=== PATIENT | female | born 1995 | race Caucasian/White ===

== ENCOUNTER 2016-08-28 21:27 | Emergency (ER) | payer OTHER ==
[2016-08-28 21:52] VITALS: O2SAT 100
[2016-08-28] MEDS ORDERED: Sodium Chloride 0.9% 1000 ML 1,000 ML IV STA (22:10)
--- NOTE | 2016-08-28 22:10 | ERPHSYRPT ---
- History of Present Illness Time Seen by Provider: 08/28/16 22:07 Historian: patient, family Exam Limitations: no limitations Patient Subjective Stated Complaint: PER PATIENT DIFUSE LOWER GENERALIZED ABD PAIN X2 WEEKS WITH ?? VAG DISCHARGE. P0-G0 Triage Nursing Assessment: PATIENT AOX3, VSS, NO FEVER, ABLE TO AMBULATE TO ROOM WITHOUT DIFF, FAMILY IN ROOM. Physician History: pt had pain with period and now again bilateral; no prior infections; states discharge has been present before and was treated for yeast and may not be related to pain above; wants to avoid pelvic if possible. no hx trauma; no n or v ; Timing/Duration: day(s) Activities at Onset: none Quality: pressure, sharpness, throbbing Abdominal Pain Onset Location: RLQ, LLQ Pain Radiation: RLQ, LLQ Severity of Pain-Max: moderate Severity of Pain-Current: moderate Modifying Factors: Improves With: movement, walking Previous symptoms: same symptoms as today Immunizations Up to Date: Yes - Review of Systems Constitutional: No Fever, No Chills Eyes: No Symptoms Ears, Nose, & Throat: No Symptoms Respiratory: No Cough, No Dyspnea Cardiac: No Chest Pain, No Edema, No Syncope Abdominal/Gastrointestinal: Abdominal Pain, No Nausea, No Vomiting, No Diarrhea Genitourinary Symptoms: Vaginal Discharge, No Dysuria Musculoskeletal: No Back Pain, No Neck Pain Skin: No Rash Neurological: No Dizziness, No Focal Weakness, No Sensory Changes Psychological: No Symptoms Endocrine: No Symptoms All Other Systems: Reviewed and Negative - Past Medical History Neurological History: No Pertinent History ENT History: No Pertinent History Cardiac History: No Pertinent History Respiratory History: No Pertinent History Endocrine Medical History: No Pertinent History Musculoskeletal History: Other GI Medical History: No Pertinent History History: No Pertinent History Psycho-Social History: No Pertinent History Female Reproductive Disorders: No Pertinent History Other Medical History: CHRONIC BACK PAIN - Past Surgical History Past Surgical History: No Neuro Surgical History: No Pertinent History Cardiac: No Pertinent History Respiratory: No Pertinent History Gastrointestinal: No Pertinent History Genitourinary: No Pertinent History Musculoskeletal: No Pertinent History Female Surgical History: No Pertinent History Other Surgical History: NONE - Social History Smoking Status: Never smoker Exposure to second hand smoke: No Drug Use: none Patient Lives Alone: No (FAMILY) - Female History Hx Last Menstrual Period: T-14 - Nursing Vital Signs Nursing Vital Signs: Initial Vital Signs Temperature 98.0 F Temperature Source Oral Pulse Rate 119 Respiratory Rate 16 Blood Pressure [Right Arm] 112/61 Pain Intensity 8 - Physical Exam General Appearance: no apparent distress, alert Eye Exam: PERRL/EOMI, eyes nml inspection Ears, Nose, Throat Exam: normal ENT inspection, pharynx normal, moist mucous membranes Neck Exam: normal inspection, non-tender, supple, full range of motion Respiratory Exam: normal breath sounds, lungs clear, No respiratory distress Cardiovascular Exam: regular rate/rhythm, normal heart sounds Gastrointestinal/Abdomen Exam: soft, tenderness (bilateral LQ), No mass Rectal Exam: deferred Back Exam: normal inspection, normal range of motion, No CVA tenderness, No vertebral tenderness Extremity Exam: normal inspection, normal range of motion, pelvis stable Neurologic Exam: alert, oriented x 3, cooperative, normal mood/affect, nml cerebellar function, sensation nml, No motor deficits Skin Exam: normal color, warm, dry SpO2: 100 Oxygen Delivery: Room Air - Course Nursing assessment & vital signs reviewed: Yes Ordered Tests: Active Orders 24 hr Category Date Time Status IV Insertion STAT Care 08/28/16 22:10 Active NPO (ED) STAT Care 08/28/16 22:10 Active PELVIS TRANS VAGINAL [US] Stat Exams 08/28/16 22:11 Taken AMYLASE Stat Lab 08/28/16 22:33 Completed CBC W DIFF Stat Lab 08/28/16 22:33 Completed CMP Stat Lab 08/28/16 22:33 Completed HCG QUALITATIVE,SERUM Stat Lab 08/28/16 22:33 Completed HCG, Quantitative (Inhouse) Stat Lab 08/28/16 22:33 Completed LIPASE Stat Lab 08/28/16 22:33 Completed Lactic Acid Stat Lab 08/28/16 22:30 Completed Lactic Acid Stat Lab 08/29/16 00:25 Completed UA W/ MICROSCOPIC Stat Lab 08/28/16 22:37 Completed Wet Prep Stat Lab 08/28/16 22:12 Ordered Medication Summary Generic Name Dose Route Start Last Admin Trade Name Freq PRN Reason Stop Dose Admin Sodium Chloride 1,000 mls @ 999 mls/hr 08/29/16 00:13 08/29/16 00:23 Sodium Chloride 0.9% 1000 Ml IV 08/29/16 01:13 999 mls/hr .Q1H1M STA Administration Discontinued Medications Generic Name Dose Route Start Last Admin Trade Name Freq PRN Reason Stop Dose Admin Sodium Chloride 1,000 mls @ 999 mls/hr 08/28/16 22:10 08/28/16 22:24 Sodium Chloride 0.9% 1000 Ml IV 08/28/16 23:10 999 mls/hr .Q1H1M STA Administration Sodium Chloride Confirm 08/28/16 22:18 Sodium Chloride 0.9% 1000 Ml Administered 08/28/16 22:19 Dose 1,000 mls @ ud .ROUTE .STK-MED ONE Sodium Chloride Confirm 08/29/16 00:10 Sodium Chloride 0.9% 1000 Ml Administered 08/29/16 00:11 Dose 1,000 mls @ ud .ROUTE .STK-MED ONE Potassium Chloride 20 meq 08/29/16 00:13 08/29/16 00:22 Klor Con 10 Meq PO 08/29/16 00:14 20 meq STAT ONE Administration Potassium Chloride Confirm 08/29/16 00:22 Klor Con 10 Meq Administered 08/29/16 00:23 Dose 20 meq PO .STK-MED ONE Lab/Rad Data: Laboratory Result Diagrams 08/28/16 22:33 08/28/16 22:33 Laboratory Results 08/29/16 08/28/16 08/28/16 Range/Units 00:25 22:37 22:33 WBC (4.0-10.5) K/mm3 RBC (4.1-5.4) M/mm3 Hgb (12.0-16.0) gm/dl Hct (35-47) % MCV (78-100) fl MCH (26-32) pg MCHC (32-36) g/dl RDW (11.5-14.0) % Plt Count (150-450) K/mm3 MPV (6-9.5) fl Gran % (36.0-66.0) % Lymphocytes % (24.0-44.0) % Monocytes % (0.0-12.0) % Eosinophils % (0.00-5.0) % Basophils % (0.0-0.4) % Basophils # (0-0.4) Sodium (136-145) mEq/L Potassium (3.5-5.1) mEq/L Chloride (98-107) mEq/L Carbon Dioxide (21-32) mEq/L Anion Gap (5-15) MEQ/L BUN (9-20) mg/dL Creatinine (0.55-1.30) mg/dl Estimated GFR ML/MIN Glucose (70-110) MG/DL Lactic Acid 0.9 (0.4-2.0) Calcium (8.5-10.1) mg/dL Total Bilirubin (0.2-1.0) mg/dL AST (15-37) U/L ALT (12-78) U/L Alkaline Phosphatase (46-116) U/L Serum Total Protein (6.4-8.2) gm/dL Albumin (3.4-5.0) g/dL Amylase (25-115) U/L Lipase (73-393) U/L Beta HCG, Quant < 1.0 (0-6) IU/L Serum , Qual (Negative) Ur Collection Type CLEAN CATCH Urine Color YELLOW (YELLOW) Urine Appearance SLIGHTLY CLOUDY (CLEAR) Urine pH 6.0 (5-6) Ur Specific [place] >=1.030 (1.005-1.025) Urine Protein TRACE (Negative) Urine Glucose (UA) NEGATIVE (NEGATIVE) mg/dL Urine Ketones MODERATE-40 (NEGATIVE) Urine Nitrite NEGATIVE (NEGATIVE) Urine Bilirubin NEGATIVE (NEGATIVE) Urine Urobilinogen 0.2 (0-1) mg/dL Urine WBC (Auto) NEGATIVE (NEGATIVE) Urine RBC (Auto) NEGATIVE (0-5) Trevor/ul Urine Microscopic RBC 0-2 (0-2) /HPF Urine Microscopic WBC 0-2 (0-5) /HPF Ur Epithelial Cells MODERATE (FEW) /HPF Urine Bacteria MODERATE (NEGATIVE) /HPF Urine Mucus MODERATE (NEGATIVE) /HPF Specimen Received 08/28/16222908/28/16 08/28/16 08/28/16 Range/Units 22:33 22:33 22:33 WBC 9.3 (4.0-10.5) K/mm3 RBC 4.60 (4.1-5.4) M/mm3 Hgb 14.2 (12.0-16.0) gm/dl Hct 41.9 (35-47) % MCV 91.1 (78-100) fl MCH 30.9 (26-32) pg MCHC 33.9 (32-36) g/dl RDW 12.4 (11.5-14.0) % Plt Count 347 (150-450) K/mm3 MPV 10.1 H (6-9.5) fl Gran % 64.8 (36.0-66.0) % Lymphocytes % 26.3 (24.0-44.0) % Monocytes % 8.3 (0.0-12.0) % Eosinophils % 0.4 (0.00-5.0) % Basophils % 0.2 (0.0-0.4) % Basophils # 0.02 (0-0.4) Sodium 140 (136-145) mEq/L Potassium 3.3 L (3.5-5.1) mEq/L Chloride 103 (98-107) mEq/L Carbon Dioxide 23.2 (21-32) mEq/L Anion Gap 16.7 H (5-15) MEQ/L BUN 15 (9-20) mg/dL Creatinine 0.66 (0.55-1.30) mg/dl Estimated GFR > 60 ML/MIN Glucose 99 (70-110) MG/DL Lactic Acid (0.4-2.0) Calcium 9.9 (8.5-10.1) mg/dL Total Bilirubin 0.4 (0.2-1.0) mg/dL AST 21 (15-37) U/L ALT 19 (12-78) U/L Alkaline Phosphatase 43 L (46-116) U/L Serum Total Protein 7.8 (6.4-8.2) gm/dL Albumin 4.7 (3.4-5.0) g/dL Amylase 36 (25-115) U/L Lipase 135 (73-393) U/L Beta HCG, Quant (0-6) IU/L Serum , Qual NEGATIVE (Negative) Ur Collection Type Urine Color (YELLOW) Urine Appearance (CLEAR) Urine pH (5-6) Ur Specific [place] (1.005-1.025) Urine Protein (Negative) Urine Glucose (UA) (NEGATIVE) mg/dL Urine Ketones (NEGATIVE) Urine Nitrite (NEGATIVE) Urine Bilirubin (NEGATIVE) Urine Urobilinogen (0-1) mg/dL Urine WBC (Auto) (NEGATIVE) Urine RBC (Auto) (0-5) Trevor/ul Urine Microscopic RBC (0-2) /HPF Urine Microscopic WBC (0-5) /HPF Ur Epithelial Cells (FEW) /HPF Urine Bacteria (NEGATIVE) /HPF Urine Mucus (NEGATIVE) /HPF Specimen Received 08/28/16 Range/Units 22:30 WBC (4.0-10.5) K/mm3 RBC (4.1-5.4) M/mm3 Hgb (12.0-16.0) gm/dl Hct (35-47) % MCV (78-100) fl MCH (26-32) pg MCHC (32-36) g/dl RDW (11.5-14.0) % Plt Count (150-450) K/mm3 MPV (6-9.5) fl Gran % (36.0-66.0) % Lymphocytes % (24.0-44.0) % Monocytes % (0.0-12.0) % Eosinophils % (0.00-5.0) % Basophils % (0.0-0.4) % Basophils # (0-0.4) Sodium (136-145) mEq/L Potassium (3.5-5.1) mEq/L Chloride (98-107) mEq/L Carbon Dioxide (21-32) mEq/L Anion Gap (5-15) MEQ/L BUN (9-20) mg/dL Creatinine (0.55-1.30) mg/dl Estimated GFR ML/MIN Glucose (70-110) MG/DL Lactic Acid 2.2 H (0.4-2.0) Calcium (8.5-10.1) mg/dL Total Bilirubin (0.2-1.0) mg/dL AST (15-37) U/L ALT (12-78) U/L Alkaline Phosphatase (46-116) U/L Serum Total Protein (6.4-8.2) gm/dL Albumin (3.4-5.0) g/dL Amylase (25-115) U/L Lipase (73-393) U/L Beta HCG, Quant (0-6) IU/L Serum , Qual (Negative) Ur Collection Type Urine Color (YELLOW) Urine Appearance (CLEAR) Urine pH (5-6) Ur Specific [place] (1.005-1.025) Urine Protein (Negative) Urine Glucose (UA) (NEGATIVE) mg/dL Urine Ketones (NEGATIVE) Urine Nitrite (NEGATIVE) Urine Bilirubin (NEGATIVE) Urine Urobilinogen (0-1) mg/dL Urine WBC (Auto) (NEGATIVE) Urine RBC (Auto) (0-5) Trevor/ul Urine Microscopic RBC (0-2) /HPF Urine Microscopic WBC (0-5) /HPF Ur Epithelial Cells (FEW) /HPF Urine Bacteria (NEGATIVE) /HPF Urine Mucus (NEGATIVE) /HPF Specimen Received - Progress Progress: improved, re-examined Progress Note: 08/29/16 00:42 pt lactate has returned to normal after IVF , she feels OK now and wishes DC; she declines pelvic and wet prep/ at this time , but wishes treatmetn of /for yeast as before; she aggrees to f/u [employer] and will be tested if symptoms not resolving; 08/29/16 00:44 HR improved to 80-s now; 08/29/16 00:45 discussed also diagnosis of cyst and that undetected pathology could be evolving and pt prefers DC and F/U to further testing/admission at this time; Counseled pt/family regarding: lab results, diagnosis, need for follow-up, rad results - Departure Time of Disposition: 00:44 Departure Disposition: Home Clinical Impression: Ruptured ovarian cyst Condition: Good Critical Care Time: No Instructions: Abdominal Pain-Adult, Ovarian Cyst, Yeast Infection Additional Instructions: followup with your Dr for your Ovarian cyst , and yeast , and have further cultures if the discharge continues as we have not tested for other things; return meantime if dizzy, vomiting, increased pain , fever , discharge or other concerns; Prescriptions: Miconazole Nitrate [Monistat 1] 1 each VG UD #1 kit
[2016-08-28] MEDS ORDERED: Sodium Chloride 0.9% 1000 ML 1,000 ML ONE (22:18)
[2016-08-28 22:38] LABS: BASOPHIL % 0.2 % (0.0-0.4); Eosinophil % 0.4 % (0.00-5.0); Granulocytes % 64.8 % (36.0-66.0); Lymphocytes % 26.3 % (24.0-44.0); Mean Cell Volume 91.1 fl (78-100); Mean Corpuscular Hemoglobin 30.9 pg (26-32); Mean Platelet Volume 10.1 fl (6-9.5); Monocytes % 8.3 % (0.0-12.0); Platelet Count 347 K/mm3 (150-450); Red Cell Distribution Width 12.4 % (11.5-14.0); White Blood Count 9.3 K/mm3 (4.0-10.5)
[2016-08-28 22:40] LABS: Lactic Acid 2.2 (0.4-2.0)
[2016-08-28 22:57] LABS: ALBUMIN 4.7 g/dL (3.4-5.0); ALKALINE PHOSPHATASE 43 U/L (46-116); ANION GAP 16.7 MEQ/L (5-15); BILIRUBIN,TOTAL 0.4 mg/dL (0.2-1.0); BLOOD UREA NITROGEN 15 mg/dL (9-20); CHLORIDE 103 mEq/L (98-107); Carbon Dioxide 23.2 mEq/L (21-32); Glucose 99 MG/DL (70-110); LIPASE 135 U/L (73-393); Potassium 3.3 mEq/L (3.5-5.1); SGOT/AST 21 U/L (15-37); SGPT/ALT 19 U/L (12-78); SODIUM 140 mEq/L (136-145); Total Protein 7.8 gm/dL (6.4-8.2)
[2016-08-28 23:03] VITALS: BP 112/61; PULSE 119
[2016-08-28 23:05] LABS: Bacteria MODERATE /HPF (NEGATIVE); COMPLETE URINE MICROSCOPIC? YES; Collection Type CLEAN CATCH; Epithelial Cells MODERATE /HPF (FEW); Mucus MODERATE /HPF (NEGATIVE); WBC 0-2 /HPF (0-5)
[2016-08-29] MEDS ORDERED: Sodium Chloride 0.9% 1000 ML 1,000 ML ONE (00:10)
[2016-08-29] MEDS ORDERED: Klor Con 10 MEQ PO ONE ×2 (00:13→00:22)
[2016-08-29] MEDS ORDERED: Sodium Chloride 0.9% 1000 ML 1,000 ML IV STA (00:13)
--- NOTE | 2016-08-29 09:41 | XRAY ---
Indication: Pelvic pain. Two-dimensional transvaginal pelvic sonogram was performed. Comparison: None Uterus is anteverted measuring 7.3 x 3.1 x 3.9 cm. No uterine mass. Endometrial stripe measures 7.4 mm in thickness. No endometrial cavity mass or fluid collection. Right ovary measures 2.7 x 3.0 x 2.2 cm and the left measures 2.9 x 2.1 x 2.5 cm. Normal perfusion bilaterally. Partially collapsed 1.5 cm right ovary cyst with tiny cul-de-sac fluid. Impression: Collapsing right ovary cyst with tiny cul-de-sac fluid. Remaining pelvic sonogram is negative. Comment: Preliminary report was given.
== END 2016-08-29 01:06 | disposition home or self-care (01) ==
LOC: ED 21:27
DX: N83.209 Unspecified ovarian cyst, unspecified side (principal)
CPT/HCPCS: 36000; 36415; 76830; 80053; 81000; 82150; 83605; 83690; 84702; 84703; 85025; 96360; 96361; 99284; A9270-GY

== ENCOUNTER 2017-10-11 03:17 | Emergency (ER) | payer OTHER ==
--- NOTE | 2017-10-11 03:57 | ERPHSYRPT ---
- History of Present Illness Time Seen by Provider: 10/11/17 03:47 Historian: patient, family, EMS Exam Limitations: no limitations Patient Subjective Stated Complaint: Pt arrives to ER with c/o mid-epigastric abdominal pain for past 2 days and radiates into left flank/LUQ/left ribs. States had a panic attack when getting home from [facility] ER after taking Trimont and Keflex for sore throat. States had abdominal pain there but denies being treated for abdominal pain. Pt was hypotensive for EMS with BP 80's and 90 's systolic and tachycardic rate 105bpm. Pt now normotensive 117/73 and NSR 86bpm. Pt does not appear to be in any distress at this time. pt is dizzy while walking to restroom stating believes is d/t norco. Triage Nursing Assessment: see above Physician History: The patient is a 22-year-old female arrives by ambulance with her family complaining of epigastric pain for 2 days, some mild diarrhea, nausea, and a sore throat. Decrease appetite. One hour ago she was seen at [facility] ER and was diagnosed with strep throat, given Trimont and Keflex and discharged per patient report. When she got home her abdominal pain increased and she was not feeling well. Her past medical history significant for cholecystectomy. Timing/Duration: day(s) (2), constant, gradual onset Activities at Onset: none Quality: aching Abdominal Pain Onset Location: epigastric Pain Radiation: no radiation Severity of Pain-Max: moderate Severity of Pain-Current: moderate Modifying Factors: Improves With: nothing Associated Symptoms: diarrhea, nausea Previous symptoms: no prior history Allergies/Adverse Reactions: coconut Adverse Reaction (Verified 10/11/17 03:34) Rash hydrogen peroxide Adverse Reaction (Verified 10/11/17 03:34) Rash Home Medications: Cephalexin Mh 250 mg [Keflex 250 mg] 250 mg PO DAILY 10/11/17 [History] Hydrocodone Bit/Acetaminophen [Trimont 5-325 Tablet] 1 tab PO Q4-6HPRN PRN [History] - Review of Systems Constitutional: Fever Eyes: No Symptoms Ears, Nose, & Throat: Throat Pain Respiratory: No Cough, No Dyspnea Cardiac: No Chest Pain, No Edema, No Syncope Abdominal/Gastrointestinal: Nausea, Diarrhea Genitourinary Symptoms: No Dysuria Musculoskeletal: No Back Pain, No Neck Pain Skin: No Rash Neurological: No Dizziness, No Focal Weakness, No Sensory Changes Psychological: No Symptoms Endocrine: No Symptoms Hematologic/Lymphatic: No Symptoms Immunological/Allergic: No Symptoms All Other Systems: Reviewed and Negative - Past Medical History Pertinent Past Medical History: Yes Neurological History: No Pertinent History ENT History: No Pertinent History Cardiac History: No Pertinent History Respiratory History: No Pertinent History Endocrine Medical History: No Pertinent History Musculoskeletal History: Other GI Medical History: No Pertinent History History: No Pertinent History Psycho-Social History: No Pertinent History Female Reproductive Disorders: No Pertinent History Other Medical History: CHRONIC BACK PAIN - Past Surgical History Past Surgical History: Yes Neuro Surgical History: No Pertinent History Cardiac: No Pertinent History Respiratory: No Pertinent History Gastrointestinal: Cholecystectomy Genitourinary: No Pertinent History Musculoskeletal: No Pertinent History Female Surgical History: No Pertinent History Other Surgical History: Finger surgery, wart laser removal from hand - Social History Smoking Status: Never smoker Exposure to second hand smoke: Yes Drug Use: none Patient Lives Alone: No - Female History Hx Now: No - Nursing Vital Signs Nursing Vital Signs: Initial Vital Signs Temperature 98.7 F 10/11/17 03:20 Pulse Rate 88 10/11/17 03:20 Respiratory Rate 18 10/11/17 03:20 Blood Pressure 117/73 10/11/17 03:20 O2 Sat by Pulse Oximetry 99 10/11/17 03:20 Pain Scale Pain Intensity 5 - Physical Exam General Appearance: no apparent distress, alert Eye Exam: PERRL/EOMI, eyes nml inspection Ears, Nose, Throat Exam: normal ENT inspection, pharynx normal, moist mucous membranes Neck Exam: normal inspection, non-tender, supple, full range of motion Respiratory Exam: normal breath sounds, lungs clear, No respiratory distress Cardiovascular Exam: normal heart sounds, tachycardia Gastrointestinal/Abdomen Exam: soft, tenderness (epigastric), No mass Pelvic Exam: not done Rectal Exam: not done Back Exam: normal inspection, normal range of motion, No CVA tenderness, No vertebral tenderness Extremity Exam: normal inspection, normal range of motion, pelvis stable Neurologic Exam: alert, oriented x 3, cooperative, normal mood/affect, nml cerebellar function, sensation nml, No motor deficits Skin Exam: normal color, warm, dry SpO2 Interpretation: normal SpO2: 99 Oxygen Delivery: Room Air - Radiology Exams Abdomen X-ray Interpretation: Interpreted by me, Other (mildly dilated colon.) Chest X-ray Interpretation: Interpreted by me, Negative - CT Exams Abdomen/Pelvis CT Interpretation: Tele-radiologist Report (per Dr Urias.), Other (mildly distended small bowel; enteritis; perocolonic stranding; colitis) Ordered Tests: Active Orders 24 hr Category Date Time Status Clean Catch Urine Specimen STAT Care 10/11/17 03:57 Active IV Insertion STAT Care 10/11/17 03:57 Active ABDOMEN AND PELVIS W/0 CONTRAS [CT] Stat Exams 10/11/17 05:29 Taken OBSTR/ACUTE ABDOMEN SERIES Stat Exams 10/11/17 03:58 Taken CBC W DIFF Stat Lab 10/11/17 04:23 Completed CMP Stat Lab 10/11/17 04:23 Completed HCG QUALITATIVE,SERUM Stat Lab 10/11/17 04:23 Completed LIPASE Stat Lab 10/11/17 04:23 Completed UA W/RFX UR CULTURE Stat Lab 10/11/17 04:23 Completed Urine Triage Profile Stat Lab 10/11/17 04:23 Completed Medication Summary Discontinued Medications Generic Name Dose Route Start Last Admin Trade Name Freq PRN Reason Stop Dose Admin Al Hydrox/Mg Hydrox/Simethicone Confirm 10/11/17 04:07 Maalox Es 30 Ml Unit Dose Administered 10/11/17 04:08 Dose 30 ml .ROUTE .STK-MED ONE Famotidine 20 mg 10/11/17 03:57 10/11/17 04:26 Pepcid 20 Mg Vial IV 10/11/17 03:58 20 mg STAT ONE Administration Famotidine Confirm 10/11/17 04:03 Pepcid 20 Mg Vial Administered 10/11/17 04:04 Dose 20 mg IV .STK-MED ONE Sodium Chloride 1,000 mls @ 999 mls/hr 10/11/17 03:57 10/11/17 05:32 Sodium Chloride 0.9% 1000 Ml IV 10/11/17 04:57 999 mls/hr .Q1H1M STA Infusion Sodium Chloride Confirm 10/11/17 04:07 Sodium Chloride 0.9% 1000 Ml Administered 10/11/17 04:08 Dose 1,000 mls @ ud .ROUTE .STK-MED ONE Ketorolac Tromethamine 30 mg 10/11/17 03:57 10/11/17 04:27 Toradol 30 Mg Injection IV 10/11/17 03:58 30 mg STAT ONE Administration Ketorolac Tromethamine Confirm 10/11/17 04:03 Toradol 30 Mg Injection Administered 10/11/17 04:04 Dose 30 mg .ROUTE .STK-MED ONE Lidocaine HCl Confirm 10/11/17 04:07 Xylocaine Hcl Viscous * Administered 10/11/17 04:08 Dose 15 ml .ROUTE .STK-MED ONE Magnesium Hydroxide 45 ml 10/11/17 03:57 10/11/17 04:26 Gi Cocktail 45 Ml (Maalox/Lidocaine) PO 10/11/17 03:58 45 ml STAT ONE Administration Ondansetron HCl 4 mg 10/11/17 03:57 10/11/17 04:27 Zofran 4 Mg/2 Ml Vial IV 10/11/17 03:58 4 mg STAT ONE Administration Ondansetron HCl Confirm 10/11/17 04:03 Zofran 4 Mg/2 Ml Vial Administered 10/11/17 04:04 Dose 4 mg .ROUTE .STK-MED ONE Potassium Chloride 10 meq 10/11/17 05:32 10/11/17 05:37 Klor Con 10 Meq PO 10/11/17 05:33 10 meq STAT ONE Administration Potassium Chloride Confirm 10/11/17 05:35 Klor Con 10 Meq Administered 10/11/17 05:36 Dose 10 meq PO .STK-MED ONE Lab/Rad Data: Laboratory Result Diagrams 10/11/17 04:23 10/11/17 04:23 Laboratory Results 10/11/17 10/11/17 10/11/17 Range/Units 04:23 04:23 04:23 WBC (4.0-10.5) K/mm3 RBC (4.1-5.4) M/mm3 Hgb (12.0-16.0) gm/dl Hct (35-47) % MCV (78-100) fl MCH (26-32) pg MCHC (32-36) g/dl RDW (11.5-14.0) % Plt Count (150-450) K/mm3 MPV (6-9.5) fl Gran % (36.0-66.0) % Eos # (Auto) (0-0.5) Absolute Lymphs (auto) (1.0-4.6) Absolute Monos (auto) (0.0-1.3) Lymphocytes % (24.0-44.0) % Monocytes % (0.0-12.0) % Eosinophils % (0.00-5.0) % Basophils % (0.0-0.4) % Absolute Granulocytes (1.4-6.9) Basophils # (0-0.4) Sodium (137-145) mmol/L Potassium (3.5-5.1) mmol/L Chloride (98-107) mmol/L Carbon Dioxide (22-30) mmol/L Anion Gap (5-15) MEQ/L BUN (7-17) mg/dL Creatinine (0.52-1.04) mg/dL Estimated GFR ML/MIN Glucose (74-106) mg/dL Calcium (8.4-10.2) mg/dL Total Bilirubin (0.2-1.3) mg/dL AST (14-36) U/L ALT (0-35) U/L Alkaline Phosphatase (38-126) U/L Serum Total Protein (6.3-8.2) g/dL Albumin (3.5-5.0) g/dL Lipase (23-300) U/L Serum , Qual (Negative) Ur Collection Type CCMS Urine Color YELLOW (YELLOW) Urine Appearance CLEAR (CLEAR) Urine pH 6.0 (5-6) Ur Specific [place] 1.015 (1.005-1.025) Urine Protein NEGATIVE (Negative) Urine Ketones MODERATE (NEGATIVE) Urine Blood NEGATIVE (0-5) Trevor/ul Urine Nitrite NEGATIVE (NEGATIVE) Urine Bilirubin NEGATIVE (NEGATIVE) Urine Urobilinogen NORMAL (0-1) mg/dL Ur Leukocyte Esterase NEGATIVE (NEGATIVE) Urine Culture Reflexed NO (NO) Urine Glucose NEGATIVE (NEGATIVE) mg/dL Urine Opiates Level POSITIVE (NEGATIVE) Ur Methadone NEGATIVE (NEGATIVE) Urine Barbiturates NEGATIVE (NEGATIVE) Ur Phencyclidine (PCP) NEGATIVE (NEGATIVE) Urine Amphetamine NEGATIVE (NEGATIVE) U Benzodiazepine Level NEGATIVE (NEGATIVE) Urine Cocaine NEGATIVE (NEGATIVE) Urine Marijuana (THC) NEGATIVE (NEGATIVE) Group A Strep Antibody NEGATIVE (NEGATIVE) Specimen Received 10-11-17 0430 10/11/17 10/11/17 10/11/17 Range/Units 04:23 04:23 04:23 WBC 16.1 H (4.0-10.5) K/mm3 RBC 4.44 (4.1-5.4) M/mm3 Hgb 14.1 (12.0-16.0) gm/dl Hct 40.5 (35-47) % MCV 91.2 (78-100) fl MCH 31.8 (26-32) pg MCHC 34.8 (32-36) g/dl RDW 12.2 (11.5-14.0) % Plt Count 309 (150-450) K/mm3 MPV 9.7 H (6-9.5) fl Gran % 86.1 H (36.0-66.0) % Eos # (Auto) 0.01 (0-0.5) Absolute Lymphs (auto) 1.20 (1.0-4.6) Absolute Monos (auto) 0.99 (0.0-1.3) Lymphocytes % 7.5 L (24.0-44.0) % Monocytes % 6.2 (0.0-12.0) % Eosinophils % 0.1 (0.00-5.0) % Basophils % 0.1 (0.0-0.4) % Absolute Granulocytes 13.83 H (1.4-6.9) Basophils # 0.02 (0-0.4) Sodium 141 (137-145) mmol/L Potassium 3.4 L (3.5-5.1) mmol/L Chloride 106 (98-107) mmol/L Carbon Dioxide 24 (22-30) mmol/L Anion Gap 14.1 (5-15) MEQ/L BUN 12 (7-17) mg/dL Creatinine 0.56 (0.52-1.04) mg/dL Estimated GFR > 60.0 ML/MIN Glucose 126 H (74-106) mg/dL Calcium 9.2 (8.4-10.2) mg/dL Total Bilirubin 0.60 (0.2-1.3) mg/dL AST 17 (14-36) U/L ALT 11 (0-35) U/L Alkaline Phosphatase 45 (38-126) U/L Serum Total Protein 7.2 (6.3-8.2) g/dL Albumin 4.6 (3.5-5.0) g/dL Lipase 67 (23-300) U/L Serum , Qual NEGATIVE (Negative) Ur Collection Type Urine Color (YELLOW) Urine Appearance (CLEAR) Urine pH (5-6) Ur Specific [place] (1.005-1.025) Urine Protein (Negative) Urine Ketones (NEGATIVE) Urine Blood (0-5) Trevor/ul Urine Nitrite (NEGATIVE) Urine Bilirubin (NEGATIVE) Urine Urobilinogen (0-1) mg/dL Ur Leukocyte Esterase (NEGATIVE) Urine Culture Reflexed (NO) Urine Glucose (NEGATIVE) mg/dL Urine Opiates Level (NEGATIVE) Ur Methadone (NEGATIVE) Urine Barbiturates (NEGATIVE) Ur Phencyclidine (PCP) (NEGATIVE) Urine Amphetamine (NEGATIVE) U Benzodiazepine Level (NEGATIVE) Urine Cocaine (NEGATIVE) Urine Marijuana (THC) (NEGATIVE) Group A Strep Antibody (NEGATIVE) Specimen Received - Progress Progress: improved Counseled pt/family regarding: lab results, diagnosis, need for follow-up, rad results - Departure Time of Disposition: 06:46 Departure Disposition: Home Clinical Impression: Enteritis, Hypokalemia Condition: Stable Critical Care Time: No Referrals: HÉCTOR MIRELES, ZARA [Primary Care Provider] - Additional Instructions: The CT scan of your abdomen and pelvis showed enteritis which is a infection of your small intestine. Take ciprofloxacin 500 mg 2 times a day for 10 days. You also had mildly low serum potassium. You were given potassium 10 mEq in the ER. You were also given a GI cocktail in the ER. You were given Toradol 30 mg and Pepcid 20 mg by IV. Begin with a bland diet and advance as tolerated. Take Tylenol as needed. Follow-up with your primary medical doctor in 2-3 days. Discontinue taking the Keflex. Prescriptions: Ciprofloxacin [Cipro 500 MG] 1 tab PO BID #20 tablet
[2017-10-11] MEDS ORDERED: Pepcid 20 MG VIAL IV ONE (04:03)
[2017-10-11] MEDS ORDERED: Zofran 4 MG/2 ML VIAL ONE (04:03)
[2017-10-11] MEDS ORDERED: TORAdol 30 mg Injection ONE (04:03)
[2017-10-11] MEDS ORDERED: MAALOX ES 30 ML UNIT DOSE ONE (04:07)
[2017-10-11] MEDS ORDERED: Sodium Chloride 0.9% 1000 ML 1,000 ML ONE (04:07)
[2017-10-11] MEDS ORDERED: XYLOCAINE HCl Viscous ONE (04:07)
[2017-10-11 04:26] LABS: BASOPHIL % 0.1 % (0.0-0.4); Basophil (Absolute #) 0.02 (0-0.4); Eosinophil % 0.1 % (0.00-5.0); Eosinophil (Absolute #) 0.01 (0-0.5); Granulocyte Absolute (ANC) 13.83 (1.4-6.9); Granulocytes % 86.1 % (36.0-66.0); Hematocrit 40.5 % (35-47); Hemoglobin 14.1 gm/dl (12.0-16.0); Lymphocytes % 7.5 % (24.0-44.0); Mean Cell Volume 91.2 fl (78-100); Mean Corpuscular Hemoglobin 31.8 pg (26-32); Mean Corpuscular Hgb Concent. 34.8 g/dl (32-36); Mean Platelet Volume 9.7 fl (6-9.5); Monocyte (Absolute #) 0.99 (0.0-1.3); Monocytes % 6.2 % (0.0-12.0); Platelet Count 309 K/mm3 (150-450); Red Blood Count 4.44 M/mm3 (4.1-5.4); Red Cell Distribution Width 12.2 % (11.5-14.0); White Blood Count 16.1 K/mm3 (4.0-10.5)
[2017-10-11] MEDS: Pepcid 20 MG VIAL IV ONE (04:26)
[2017-10-11] MEDS: GI COCKTAIL 45 ML (Maalox/Lidocaine) PO ONE (04:26)
[2017-10-11] MEDS: TORAdol 30 mg Injection IV ONE (04:27)
[2017-10-11] MEDS: Sodium Chloride 0.9% 1000 ML 1,000 ML IV STA (04:27)
[2017-10-11] MEDS: Zofran 4 MG/2 ML VIAL IV ONE (04:27)
[2017-10-11 04:31] LABS: Appearance CLEAR (CLEAR); Bilirubin NEGATIVE (NEGATIVE); Blood NEGATIVE Ery/ul (0-5); Glucose NEGATIVE (NEGATIVE); Ketones MODERATE (NEGATIVE); Leukocyte Esterase NEGATIVE (NEGATIVE); Nitrite NEGATIVE (NEGATIVE); Protein,Urine Dip NEGATIVE (Negative); Specific Gravity 1.015 (1.005-1.025); Urobilinogen NORMAL mg/dL (0-1)
[2017-10-11 04:46] LABS: Amphetamine,Urine NEGATIVE (NEGATIVE); Barbiturate,Urine NEGATIVE (NEGATIVE); Benzodiazepine,Urine NEGATIVE (NEGATIVE); Cocaine,Urine NEGATIVE (NEGATIVE); Methadone,Urine NEGATIVE (NEGATIVE); Opiate,Urine POSITIVE (NEGATIVE); PCP,Urine NEGATIVE (NEGATIVE); THC,Urine NEGATIVE (NEGATIVE)
[2017-10-11 04:55] LABS: ALBUMIN 4.6 g/dL (3.5-5.0); ALKALINE PHOSPHATASE 45 U/L (38-126); ANION GAP 14.1 MEQ/L (5-15); BLOOD UREA NITROGEN 12 mg/dL (7-17); CHLORIDE 106 mmol/L (98-107); Calcium 9.2 mg/dL (8.4-10.2); Carbon Dioxide 24 mmol/L (22-30); Creatinine 1 0.56 mg/dL (0.52-1.04); Glucose 126 mg/dL (74-106); LIPASE 67 U/L (23-300); Potassium 3.4 mmol/L (3.5-5.1); SGOT/AST 17 U/L (14-36); SGPT/ALT 11 U/L (0-35); SODIUM 141 mmol/L (137-145); Total Protein 7.2 g/dL (6.3-8.2)
[2017-10-11 05:32] VITALS: O2SAT 99
[2017-10-11] MEDS ORDERED: Klor Con 10 MEQ PO ONE (05:35)
[2017-10-11] MEDS: Klor Con 10 MEQ PO ONE (05:37)
[2017-10-11 06:37] VITALS: BP 104/68; PULSE 103
--- NOTE | 2017-10-11 08:40 | XRAY ---
Indication: Upper abdominal pain, fever, nausea, vomiting, and diarrhea. Multiple contiguous axial images obtained through the abdomen and pelvis without contrast as ordered. Comparison: None Lung bases are clear. Heart is not enlarged. Noncontrasted stomach and bowel loops appear nonobstructed. Normal air-filled appendix. 2.5 cm right ovary cyst. Tiny cul-de-sac fluid presumed physiologic from rupture/leaking cyst. Nonobstructing faint punctate right renal nephrocalcinosis. Previous cholecystectomy. Remaining liver, pancreas, spleen, adrenal glands, kidneys, ureters, bladder, uterus, and aorta appear unremarkable for noncontrast exam. Osseous structures intact with tiny multilevel lumbar Schmorl nodes and mild levoscoliosis centered at L3. No ventral or inguinal hernias. Impression: 1. 2.5 cm right ovary cyst with tiny cul-de-sac fluid presumed physiologic. 2. Nonobstructing punctate right renal nephrocalcinosis. 3. No acute intra-abdominal/pelvic abnormalities on this noncontrast exam. Comment: Preliminary interpretation was made by [facility]. No discrepancy. CT DI 8.11
--- NOTE | 2017-10-11 08:41 | XRAY ---
Indication: Abdominal pain, nausea, vomiting, diarrhea, fever, and sore throat. Comparison: Chest exam February 25, 2009. 2 views of the abdomen demonstrates nonspecific nonobstructed bowel gas pattern with cholecystectomy clips. Solid organs unremarkable. No free air. Osseous structures intact with double curvature thoracolumbar scoliosis. Single PA chest again demonstrates normal heart and lungs. Impression: Nonacute nonobstructed abdomen. Stable nonacute 1 view chest. Incidental double curvature scoliosis.
== END 2017-10-11 07:09 | disposition home or self-care (01) ==
LOC: ED 03:17
DX: K52.9 Noninfective gastroenteritis and colitis, unspecified (principal); E87.6 Hypokalemia
CPT/HCPCS: 36000; 36415; 74022; 74176; 80053; 80307; 81002; 83690; 84703; 85025; 87651; 96360; 96372; 96374; 96375; 99284; J1885; J2405; A9270-GY

== ENCOUNTER 2017-12-24 10:49 | Emergency (ER) | payer OTHER ==
--- NOTE | 2017-12-24 11:18 | ERPHSYRPT ---
- History of Present Illness Time Seen by Provider: 12/24/17 11:06 Source: patient Exam Limitations: no limitations Patient Subjective Stated Complaint: , pt here for right lower abd and groin pain. pain for for a week has now. has seen by family doc this week and given naproxen with no refief . no vomiting or fever Triage Nursing Assessment: pt alert, resp easy, skin w/d/p, abd soft Physician History: 22-year-old white female arrives with complaint of a painful area in the right inguinal region symptoms for one half weeks. Patient has seen her family . secondary to this she states she is taking Naprosyn but is not getting any relief. Patient really is not having any abdominal pain no nausea no vomiting. Past medical history includes chronic back pain. Past surgical history includes cholecystectomy. Timing/Duration: week(s) (1-1/2 weeks) Severity: moderate Modifying Factors: Improves With: nothing Associated Symptoms: other (pain overlying right inguinal regionfor one and a half weeks), No nausea, No vomiting, No abdominal pain, No shortness of breath, No heartburn, No diaphoresis, No cough, No chills, No chest pain, No fever, No headaches, No loss of appetite, No malaise, No rash, No syncope, No seizure, No weakness Allergies/Adverse Reactions: acetaminophen [From [facility]] Allergy (Verified 12/24/17 11:02) hydrocodone [From [facility]] Allergy (Verified 12/24/17 11:02) coconut Adverse Reaction (Verified 10/11/17 03:34) Rash hydrogen peroxide Adverse Reaction (Verified 10/11/17 03:34) Rash Home Medications: Naproxen 250 mg BID 12/24/17 [History] Hx Tetanus, Diphtheria Vaccination/Date Given: Yes Hx Influenza Vaccination/Date Given: No Hx Pneumococcal Vaccination/Date Given: No Immunizations Up to Date: Yes - Review of Systems Constitutional: No Fever, No Chills Eyes: No Symptoms Ears, Nose, & Throat: No Symptoms Respiratory: No Cough, No Dyspnea Cardiac: No Chest Pain, No Edema, No Syncope Abdominal/Gastrointestinal: No Abdominal Pain, No Nausea, No Vomiting, No Diarrhea, No Constipation, No Hematemesis, No Hematochezia, No Melena, No Dysphagia, No Appetite Changes Genitourinary Symptoms: No Dysuria Musculoskeletal: Other (pain in the right inguinal region for 1 1/2 weeks) Skin: No Rash Neurological: No Dizziness, No Focal Weakness, No Sensory Changes Psychological: No Symptoms Endocrine: No Symptoms All Other Systems: Reviewed and Negative - Past Medical History Pertinent Past Medical History: Yes Neurological History: No Pertinent History ENT History: No Pertinent History Cardiac History: No Pertinent History Respiratory History: No Pertinent History Endocrine Medical History: No Pertinent History Musculoskeletal History: Other GI Medical History: No Pertinent History History: No Pertinent History Psycho-Social History: No Pertinent History Female Reproductive Disorders: No Pertinent History Other Medical History: CHRONIC BACK PAIN - Past Surgical History Past Surgical History: Yes Neuro Surgical History: No Pertinent History Cardiac: No Pertinent History Respiratory: No Pertinent History Gastrointestinal: Cholecystectomy Genitourinary: No Pertinent History Musculoskeletal: No Pertinent History Female Surgical History: No Pertinent History Other Surgical History: Finger surgery, wart laser removal from hand - Social History Smoking Status: Never smoker Exposure to second hand smoke: Yes Drug Use: none Patient Lives Alone: No - Female History Hx Last Menstrual Period: now Hx Now: No - Nursing Vital Signs Nursing Vital Signs: Initial Vital Signs Temperature 97.5 F 12/24/17 10:52 Pulse Rate 118 H 12/24/17 10:52 Respiratory Rate 16 12/24/17 10:52 Blood Pressure 105/81 12/24/17 10:52 O2 Sat by Pulse Oximetry 100 12/24/17 10:52 Pain Scale Pain Intensity 7 - Physical Exam General Appearance: mild distress Eye Exam: PERRL/EOMI, eyes nml inspection Ears, Nose, Throat Exam: normal ENT inspection, TMs normal, pharynx normal, moist mucous membranes Neck Exam: normal inspection, non-tender, supple, full range of motion Respiratory Exam: normal breath sounds, lungs clear, No respiratory distress Cardiovascular Exam: regular rate/rhythm, normal heart sounds, normal peripheral pulses Gastrointestinal/Abdomen Exam: soft, normal bowel sounds, No tenderness, No mass Extremity Exam: normal range of motion, pelvis stable, other (Palpable lymph node right inguinal region tender to palpation 1.5 cm) Neurologic Exam: alert, oriented x 3, cooperative, grain grader II-XII nml as tested, normal mood/affect, nml cerebellar function, nml station & gait, sensation nml, No motor deficits Skin Exam: normal color, warm, dry, No rash Lymphatic Exam: adenopathy (palpable lymph node right inguinal region 1.5 cm) SpO2 Interpretation: normal (100%) SpO2: 100 Oxygen Delivery: Room Air - Course Nursing assessment & vital signs reviewed: Yes - Progress Progress: improved Progress Note: 12/24/17 11:16 22-year-old white female arrives with complaint of painful area right inguinal region symptoms times one and a half weeks she has seen her family doctor. She is on Naprosyn she states she has had lab work by her family doctor which has been negative. Feels like a Naprosyn is not helping her pain. On physical examination the patient's abdomen is soft nontender nondistended positive bowel sounds there are no palpable masses patient does have a tender area in the right inguinal area feels like a 1.5 cm lymph node.. I've offered the patient shot of Toradol for pain she really does not want this. Will go ahead and place patient on Zithromax. Patient will need repeat evaluation by her family doctor. - Departure Time of Disposition: 11:18 Departure Disposition: Home Clinical Impression: lymphadenopathy right inguinal region Condition: Fair Critical Care Time: No Referrals: HÉCTOR MIRELES NP [Primary Care Provider] - Additional Instructions: Return home. Zithromax as directed. Continue Naprosyn as prescribed by your family doctor. May additionally take Tylenol every 4 hours as needed for pain. Follow-up with your family doctor you'll need recheck for this return for acute distress or for severe symptoms.. Prescriptions: Azithromycin 250 mg [Zithromax 250 MG TABLET] 0 mg PO ZPACK #6 tablet
[2017-12-24 11:30] VITALS: BP 107/70; PULSE 94
[2017-12-24 11:40] VITALS: O2SAT 100
== END 2017-12-24 11:34 | disposition home or self-care (01) ==
LOC: ED 10:49
DX: R59.1 Generalized enlarged lymph nodes (principal)
CPT/HCPCS: 99283

== ENCOUNTER 2022-01-25 16:38 | Emergency (ER) | payer BC ==
[2022-01-25] MEDS ORDERED: TORAdol 30 mg Injection IV ONE (17:30)
[2022-01-25] MEDS ORDERED: Sodium Chloride 0.9% 1000 ML 1,000 ML IV STA (17:32)
[2022-01-25] MEDS ORDERED: Zofran 4 MG/2 ML VIAL IV ONE (17:32)
[2022-01-25] MEDS ORDERED: TORAdol 30 mg Injection ONE (17:33)
[2022-01-25] MEDS ORDERED: Sodium Chloride 0.9% 1000 ML 1,000 ML ONE (17:33)
[2022-01-25] MEDS ORDERED: Zofran 4 MG/2 ML VIAL ONE (17:33)
[2022-01-25 17:35] LABS: Basophil (Absolute #) 0.07 x10^3/uL (0-0.4); Eosinophil % 0.7 % (0.00-5.0); Eosinophil (Absolute #) 0.05 x10^3/uL (0-0.5); Hematocrit 45.1 % (35-47); Hemoglobin 15.2 g/dL (12.0-16.0); Lymphocyte (Absolute #) 1.09 x10^3/uL (1.0-4.6); Lymphocytes % 14.5 % (24.0-44.0); Mean Corpuscular Hemoglobin 31.7 pg (26-32); Mean Corpuscular Hgb Concent. 33.7 g/dL (32-36); Mean Platelet Volume 9.7 fL (7.5-11.0); Monocyte (Absolute #) 0.38 x10^3/uL (0.0-1.3); Monocytes % 5.1 % (0.0-12.0); Neutrophil % 78.4 % (36.0-66.0); Platelet Count 398 x10^3/uL (150-450); Red Cell Distribution Width 11.9 % (11.5-14.0); White Blood Count 7.5 x10^3/uL (4.0-10.5)
[2022-01-25 17:42] LABS: ALBUMIN 5.2 g/dL (3.5-5.0); ALKALINE PHOSPHATASE 65 U/L (38-126); AMYLASE 61 U/L (30-110); ANION GAP 19.7 MEQ/L (5-15); BLOOD UREA NITROGEN 13 mg/dL (7-17); CHLORIDE 102 mmol/L (98-107); Calcium 9.9 mg/dL (8.4-10.2); Carbon Dioxide 18 mmol/L (22-30); Creatinine 1 0.55 mg/dL (0.52-1.04); EST GLOMERULAR FILTRATION RATE > 60.0 ML/MIN; Glucose 106 mg/dL (74-106); LIPASE 83 U/L (23-300); Potassium 3.7 mmol/L (3.5-5.1); SGOT/AST 29 U/L (14-36); SGPT/ALT 20 U/L (0-35); SODIUM 136 mmol/L (137-145); Total Protein 8.6 g/dL (6.3-8.2)
[2022-01-25] MEDS ORDERED: SUBLIMAZE 100 MCG/2 ML IV ONE ×3 (17:55→23:14)
[2022-01-25] MEDS ORDERED: SUBLIMAZE 100 MCG/2 ML ONE ×3 (17:58→23:19)
[2022-01-25 18:17] LABS: Appearance CLEAR (CLEAR); Bilirubin NEGATIVE (NEGATIVE); Glucose NEGATIVE (NEGATIVE); Ketones LARGE-160 (NEGATIVE); RBC NEGATIVE Ery/ul (0-5)
[2022-01-25 18:18] LABS: Dipstick done @ ? MAIN LAB; Nitrite NEGATIVE (NEGATIVE); Protein,Urine Dip NEGATIVE (Negative); Urobilinogen 0.2 mg/dL (0-1)
[2022-01-25 18:19] LABS: Mucus SLIGHT /HPF (NEGATIVE)
--- NOTE | 2022-01-25 18:20 | ERPHSYRPT ---
- History of Present Illness Historian: patient Exam Limitations: no limitations Patient Subjective Stated Complaint: Chest pain/left groin pain Triage Nursing Assessment: Patient brought back to ED per w/c and transferred self to bed. Patient A+O X 3. Patient's skin pale, warm and dry. Patient complains of left lower pelvic pain/chest pain 5/10. Patient states she recently had preet fallopian tubes removed 12/04/21. Patient states she is nauseated and unable to eat for a couple days. Physician History: 26 yo wf w LLQ pain x 2 days. Pain is 9/10 on scale and described as sharp/cramping. It does not radiate and nothing makes it better or worse. She has had nausea but denies vomiting/diarrhea/melena/hematochezia/hematuria/dysuria/fever. Timing/Duration: yesterday Activities at Onset: rest Quality: cramping, sharpness Abdominal Pain Onset Location: LLQ Pain Radiation: no radiation Severity of Pain-Max: severe Severity of Pain-Current: severe Modifying Factors: Improves With: nothing Associated Symptoms: denies symptoms Previous symptoms: no prior history Allergies/Adverse Reactions: acetaminophen [From [facility]] Allergy (Verified 01/25/22 16:40) hydrocodone [From [facility]] Allergy (Verified 01/25/22 16:40) coconut Adverse Reaction (Verified 01/25/22 16:40) Rash hydrogen peroxide Adverse Reaction (Verified 01/25/22 16:40) Rash Hx Tetanus, Diphtheria Vaccination/Date Given: Yes Hx Influenza Vaccination/Date Given: No Hx Pneumococcal Vaccination/Date Given: No Immunizations Up to Date: Yes Travel Risk - International Travel Have you traveled outside of the country in past 3 weeks: No - Coronavirus Screening Are you exhibiting any of the following symptoms?: No Close contact with a COVID-19 positive Pt in past 14-21 Days: No - Vaccine Status Have you recieved a Covid-19 vaccination: No - Review of Systems Constitutional: No Symptoms Eyes: No Symptoms Ears, Nose, & Throat: No Symptoms Respiratory: No Symptoms Cardiac: No Symptoms Abdominal/Gastrointestinal: No Symptoms, Abdominal Pain Genitourinary Symptoms: No Symptoms Musculoskeletal: No Symptoms Skin: No Symptoms Neurological: No Symptoms Psychological: No Symptoms Endocrine: No Symptoms Hematologic/Lymphatic: No Symptoms Immunological/Allergic: No Symptoms - Past Medical History Pertinent Past Medical History: Yes Neurological History: No Pertinent History ENT History: No Pertinent History Cardiac History: No Pertinent History Respiratory History: No Pertinent History Endocrine Medical History: No Pertinent History Musculoskeletal History: Degenerative Disk Disease, Other GI Medical History: No Pertinent History History: No Pertinent History Psycho-Social History: No Pertinent History Female Reproductive Disorders: No Pertinent History Other Medical History: CHRONIC BACK PAIN - Past Surgical History Past Surgical History: Yes Neuro Surgical History: No Pertinent History Cardiac: No Pertinent History Respiratory: No Pertinent History Gastrointestinal: Cholecystectomy Genitourinary: No Pertinent History Musculoskeletal: No Pertinent History Female Surgical History: Tubal Ligation Other Surgical History: Finger surgery, wart laser removal from hand. preet fallopian tubes removed December 04, 2021 by Roman Mena in [place] - Social History Smoking Status: Never smoker Exposure to second hand smoke: Yes Drug Use: none Patient Lives Alone: No - Female History Hx Last Menstrual Period: Dec 16 Hx Now: No - Nursing Vital Signs Nursing Vital Signs: Initial Vital Signs Temperature 97.9 F 01/25/22 16:41 Pulse Rate 129 H 01/25/22 16:41 Respiratory Rate 18 01/25/22 16:41 Blood Pressure 116/79 01/25/22 16:41 O2 Sat by Pulse Oximetry 100 01/25/22 16:41 Pain Scale Pain Intensity 2 Tachy - Physical Exam General Appearance: no apparent distress Eye Exam: PERRL/EOMI, eyes nml inspection Ears, Nose, Throat Exam: normal ENT inspection, TMs normal, pharynx normal, moist mucous membranes Neck Exam: normal inspection, non-tender, supple, full range of motion, No meningismus, No mass, No Brudzinski, No Kernig's Respiratory Exam: normal breath sounds, lungs clear, airway intact Cardiovascular Exam: tachycardia, capillary refill <2 sec, No murmur Gastrointestinal/Abdomen Exam: soft, normal bowel sounds, tenderness (TTP LLQ-L inguinal w guarding/No rebound) Pelvic Exam: normal external exam, vaginal discharge (White vaginal DC), No adnexal tenderness, No adnexal mass, No cervical motion tenderness, No vaginal bleeding Back Exam: normal inspection, normal range of motion, No CVA tenderness, No vertebral tenderness Extremity Exam: normal inspection, normal range of motion Neurologic Exam: alert, oriented x 3, cooperative, senior analyst developer II-XII nml as tested, normal mood/affect, nml cerebellar function, nml station & gait, sensation nml, No motor deficits, No sensory deficit Skin Exam: normal color, warm, dry Lymphatic Exam: No adenopathy SpO2 Interpretation: normal SpO2: 98 O2 Delivery: Room Air - Course Nursing assessment & vital signs reviewed: Yes - CT Exams Abdomen/Pelvis CT Interpretation: Negative (CT abdomen-pelvis neg per Rad) - Radiology Ultrasound Exam Pelvis Ultrasound: Other (Neg pelvic US per Tech) Ordered Tests: Active Orders 24 hr Category Date Time Status IV Insertion STAT Care 01/25/22 16:52 Completed ABDOMEN AND PELVIS W CONTRAST [CT] Stat Exams 01/25/22 18:35 Taken PELVIS TRANS VAGINAL [US] Stat Exams 01/25/22 21:11 Taken AMYLASE Stat Lab 01/25/22 17:00 Completed CBC W DIFF Stat Lab 01/25/22 17:00 Completed CMP Stat Lab 01/25/22 17:00 Completed HCG QUALITATIVE,SERUM Stat Lab 01/25/22 17:00 Completed LIPASE Stat Lab 01/25/22 17:00 Completed UA W/RFX CULTURE Stat Lab 01/25/22 17:53 Completed Urine Triage Profile Stat Lab 01/25/22 17:53 Completed Medication Summary Discontinued Medications Generic Name Dose Route Start Last Admin Trade Name Freq PRN Reason Stop Dose Admin Ceftriaxone Sodium 250 mg 01/25/22 22:13 01/25/22 22:24 Ceftriaxone Sodium 1000 Mg Inj Vial IM 01/25/22 22:14 250 mg STAT ONE Administration Ceftriaxone Sodium Confirm 01/25/22 22:23 Ceftriaxone Sodium 1000 Mg Inj Vial Administered 01/25/22 22:24 Dose 1,000 mg .ROUTE .STK-MED ONE Fentanyl Citrate 25 mcg 01/25/22 17:55 01/25/22 17:58 Fentanyl Citrate 100 Mcg/2 Ml* Vial IV 01/25/22 17:56 25 mcg STAT ONE Administration Fentanyl Citrate Confirm 01/25/22 17:58 Fentanyl Citrate 100 Mcg/2 Ml* Vial Administered 01/25/22 17:59 Dose 100 mcg .ROUTE .STK-MED ONE Fentanyl Citrate 25 mcg 01/25/22 19:01 01/25/22 19:03 Fentanyl Citrate 100 Mcg/2 Ml* Vial IV 01/25/22 19:02 25 mcg STAT ONE Administration Fentanyl Citrate Confirm 01/25/22 19:02 Fentanyl Citrate 100 Mcg/2 Ml* Vial Administered 01/25/22 19:03 Dose 100 mcg .ROUTE .STK-MED ONE Fentanyl Citrate 25 mcg 01/25/22 23:14 01/25/22 23:23 Fentanyl Citrate 100 Mcg/2 Ml* Vial IV 01/25/22 23:15 25 mcg STAT ONE Administration Fentanyl Citrate Confirm 01/25/22 23:19 Fentanyl Citrate 100 Mcg/2 Ml* Vial Administered 01/25/22 23:20 Dose 100 mcg .ROUTE .STK-MED ONE Sodium Chloride 1,000 mls @ 999 mls/hr 01/25/22 17:32 01/25/22 18:52 Sodium Chloride 0.9% 1000 Ml IV 01/25/22 18:32 Infused .Q1H1M STA Infusion Sodium Chloride Confirm 01/25/22 17:33 Sodium Chloride 0.9% 1000 Ml Administered 01/25/22 17:34 Dose 1,000 mls @ ud .ROUTE .STK-MED ONE Ketorolac Tromethamine 15 mg 01/25/22 17:30 01/25/22 17:36 Ketorolac Tromethamine 30 Mg/Ml Inj IV 01/25/22 17:31 15 mg STAT ONE Administration Ketorolac Tromethamine Confirm 01/25/22 17:33 Ketorolac Tromethamine 30 Mg/Ml Inj Administered 01/25/22 17:34 Dose 30 mg .ROUTE .STK-MED ONE Ondansetron HCl 4 mg 01/25/22 17:32 01/25/22 17:36 Ondansetron Hcl 4 Mg/2 Ml Vial IV 01/25/22 17:33 4 mg STAT ONE Administration Ondansetron HCl Confirm 01/25/22 17:33 Ondansetron Hcl 4 Mg/2 Ml Vial Administered 01/25/22 17:34 Dose 4 mg .ROUTE .STK-MED ONE Lab/Rad Data: Laboratory Result Diagrams 01/25/22 17:00 01/25/22 17:00 Laboratory Results 01/25/22 01/25/22 01/25/22 Range/Units 22:16 17:53 17:53 WBC (4.0-10.5) x10^3/uL RBC (4.1-5.4) x10^6/uL Hgb (12.0-16.0) g/dL Hct (35-47) % MCV (78-100) fL MCH (26-32) pg MCHC (32-36) g/dL RDW (11.5-14.0) % Plt Count (150-450) x10^3/uL MPV (7.5-11.0) fL Gran % (36.0-66.0) % Immature Gran % (Auto) (0.00-0.4) % Nucleat RBC Rel Count (0.00-0.1) % Eos # (Auto) (0-0.5) x10^3/uL Immature Gran # (Auto) (0.00-0.03) x10^3u/L Absolute Lymphs (auto) (1.0-4.6) x10^3/uL Absolute Monos (auto) (0.0-1.3) x10^3/uL Absolute Nucleated RBC (0.00-0.01) x10^3u/L Lymphocytes % (24.0-44.0) % Monocytes % (0.0-12.0) % Eosinophils % (0.00-5.0) % Basophils % (0.0-0.4) % Absolute Granulocytes (1.4-6.9) x10^3/uL Basophils # (0-0.4) x10^3/uL Sodium (137-145) mmol/L Potassium (3.5-5.1) mmol/L Chloride (98-107) mmol/L Carbon Dioxide (22-30) mmol/L Anion Gap (5-15) MEQ/L BUN (7-17) mg/dL Creatinine (0.52-1.04) mg/dL Estimated GFR ML/MIN Glucose (74-106) mg/dL Calcium (8.4-10.2) mg/dL Total Bilirubin (0.2-1.3) mg/dL AST (14-36) U/L ALT (0-35) U/L Alkaline Phosphatase (38-126) U/L Serum Total Protein (6.3-8.2) g/dL Albumin (3.5-5.0) g/dL Amylase (30-110) U/L Lipase (23-300) U/L Serum , Qual (Negative) Urinalys Dipstick Clnc MAIN LAB Urine Color YELLOW (YELLOW) Urine Appearance CLEAR (CLEAR) Urine pH 6.0 (5-6) Ur Specific [place] 1.010 (1.005-1.025) POC Urine Protein Conf NEGATIVE (Negative) Urine Ketones LARGE-160 (NEGATIVE) Urine Nitrite NEGATIVE (NEGATIVE) Urine Bilirubin NEGATIVE (NEGATIVE) Urine Urobilinogen 0.2 (0-1) mg/dL Urine Leukocytes NEGATIVE (NEGATIVE) Urine WBC (Auto) NONE (0-5) /HPF Urine RBC (Auto) NONE (0-2) /HPF U Epithel Cells (Auto) NONE (FEW) /HPF Urine Bacteria (Auto) NONE (NEGATIVE) /HPF Urine RBC NEGATIVE (0-5) Trevor/ul Urine Mucus (Auto) SLIGHT (NEGATIVE) /HPF Ur Culture Indicated? NO Urine Glucose NEGATIVE (NEGATIVE) mg/dL Urine Opiates Level NEGATIVE (NEGATIVE) Ur Methadone NEGATIVE (NEGATIVE) Urine Barbiturates NEGATIVE (NEGATIVE) Ur Phencyclidine (PCP) NEGATIVE (NEGATIVE) Urine Amphetamine NEGATIVE (NEGATIVE) U Benzodiazepine Level NEGATIVE (NEGATIVE) Urine Cocaine NEGATIVE (NEGATIVE) Urine Marijuana (THC) NEGATIVE (NEGATIVE) Chlamydia DNA Probe NOT DETECTED (NEGATIVE) N.gonorrhoeae DNA Probe NOT DETECTED (NEGATIVE) 01/25/22 01/25/22 01/25/22 Range/Units 17:00 17:00 17:00 WBC 7.5 (4.0-10.5) x10^3/uL RBC 4.80 (4.1-5.4) x10^6/uL Hgb 15.2 (12.0-16.0) g/dL Hct 45.1 (35-47) % MCV 94.0 (78-100) fL MCH 31.7 (26-32) pg MCHC 33.7 (32-36) g/dL RDW 11.9 (11.5-14.0) % Plt Count 398 (150-450) x10^3/uL MPV 9.7 (7.5-11.0) fL Gran % 78.4 H (36.0-66.0) % Immature Gran % (Auto) 0.4 (0.00-0.4) % Nucleat RBC Rel Count 0.0 (0.00-0.1) % Eos # (Auto) 0.05 (0-0.5) x10^3/uL Immature Gran # (Auto) 0.03 (0.00-0.03) x10^3u/L Absolute Lymphs (auto) 1.09 (1.0-4.6) x10^3/uL Absolute Monos (auto) 0.38 (0.0-1.3) x10^3/uL Absolute Nucleated RBC 0.00 (0.00-0.01) x10^3u/L Lymphocytes % 14.5 L (24.0-44.0) % Monocytes % 5.1 (0.0-12.0) % Eosinophils % 0.7 (0.00-5.0) % Basophils % 0.9 (0.0-0.4) % Absolute Granulocytes 5.90 (1.4-6.9) x10^3/uL Basophils # 0.07 (0-0.4) x10^3/uL Sodium 136 L (137-145) mmol/L Potassium 3.7 (3.5-5.1) mmol/L Chloride 102 (98-107) mmol/L Carbon Dioxide 18 L (22-30) mmol/L Anion Gap 19.7 H (5-15) MEQ/L BUN 13 (7-17) mg/dL Creatinine 0.55 (0.52-1.04) mg/dL Estimated GFR > 60.0 ML/MIN Glucose 106 (74-106) mg/dL Calcium 9.9 (8.4-10.2) mg/dL Total Bilirubin 1.10 (0.2-1.3) mg/dL AST 29 (14-36) U/L ALT 20 (0-35) U/L Alkaline Phosphatase 65 (38-126) U/L Serum Total Protein 8.6 H (6.3-8.2) g/dL Albumin 5.2 H (3.5-5.0) g/dL Amylase 61 (30-110) U/L Lipase 83 (23-300) U/L Serum , Qual NEGATIVE (Negative) Urinalys Dipstick Clnc Urine Color (YELLOW) Urine Appearance (CLEAR) Urine pH (5-6) Ur Specific [place] (1.005-1.025) POC Urine Protein Conf (Negative) Urine Ketones (NEGATIVE) Urine Nitrite (NEGATIVE) Urine Bilirubin (NEGATIVE) Urine Urobilinogen (0-1) mg/dL Urine Leukocytes (NEGATIVE) Urine WBC (Auto) (0-5) /HPF Urine RBC (Auto) (0-2) /HPF U Epithel Cells (Auto) (FEW) /HPF Urine Bacteria (Auto) (NEGATIVE) /HPF Urine RBC (0-5) Trevor/ul Urine Mucus (Auto) (NEGATIVE) /HPF Ur Culture Indicated? Urine Glucose (NEGATIVE) mg/dL Urine Opiates Level (NEGATIVE) Ur Methadone (NEGATIVE) Urine Barbiturates (NEGATIVE) Ur Phencyclidine (PCP) (NEGATIVE) Urine Amphetamine (NEGATIVE) U Benzodiazepine Level (NEGATIVE) Urine Cocaine (NEGATIVE) Urine Marijuana (THC) (NEGATIVE) Chlamydia DNA Probe (NEGATIVE) N.gonorrhoeae DNA Probe (NEGATIVE) - Progress Progress: improved Progress Note: 01/25/22 22:26 15mg IV Toradol w minimum improvement in pain 01/25/22 22:27 Fentanyl 25mcg IV x2 w improvement in pain 4mg IV Zofran 250mg IM Rocephin Counseled pt/family regarding: lab results, diagnosis, need for follow-up, rad results - Departure Departure Disposition: Home Clinical Impression: Pelvic pain Condition: Stable Critical Care Time: No Referrals: HÉCTOR MIRELES NP [Primary Care Provider] - Follow up/PCP as directed Instructions: Pelvic Pain (DC) Additional Instructions: Follow up with your family MD in 1-2 days Doxycycline twice a day for 1 week Prescriptions: Doxycycline Monohydrate 100 mg PO BID #14 cap
[2022-01-25 18:21] LABS: Amphetamine,Urine NEGATIVE (NEGATIVE); Barbiturate,Urine NEGATIVE (NEGATIVE); Benzodiazepine,Urine NEGATIVE (NEGATIVE); Cocaine,Urine NEGATIVE (NEGATIVE); Methadone,Urine NEGATIVE (NEGATIVE); Opiate,Urine NEGATIVE (NEGATIVE); PCP,Urine NEGATIVE (NEGATIVE); THC,Urine NEGATIVE (NEGATIVE)
[2022-01-25 18:25] LABS: Urine Cultured Indicated? NO
[2022-01-25 19:07] VITALS: BP 118/68
[2022-01-25] MEDS ORDERED: Rocephin 1000 MG INJ IM ONE (22:13)
[2022-01-25 22:23] VITALS: O2SAT 98
[2022-01-25] MEDS ORDERED: Rocephin 1000 MG INJ ONE (22:23)
[2022-01-25 23:08] VITALS: PULSE 87
[2022-01-25 23:54] LABS: CHLAMYDIA DNA NOT DETECTED (NEGATIVE); GC DNA Probe NOT DETECTED (NEGATIVE)
--- NOTE | 2022-01-26 08:34 | XRAY ---
Indication: Left lower quadrant pain 3 days. Multiple contiguous axial images obtained through the abdomen and pelvis using 80 cc Isovue 370 contrast. Comparison: January 05, 2018 Lung bases clear. Heart not enlarged. Noncontrasted stomach and bowel loops appear nonobstructed with normal air-filled appendix. Again previous cholecystectomy. No free fluid/air. Uterus demonstrates fluid in the endometrial cavity up to 7 mm in thickness. Remaining liver, pancreas, spleen, adrenal glands, kidneys, ureters, bladder, uterus, and aorta are unremarkable. No pathologic retroperitoneal lymphadenopathy. Osseous structures intact again with multilevel tiny Schmorl nodes. Impression: 1. Endometrial cavity fluid. Correlate with patient's menstrual cycle. 2. Remaining CT abdomen/pelvis with contrast exam is negative.
--- NOTE | 2022-01-26 08:38 | XRAY ---
Indication: Left lower quadrant pain. Two-dimensional transvaginal pelvic sonogram performed. Comparison: August 28, 2016 Uterus again anteverted measuring 7.5 x 3.4 x 4.7 cm. Mid uterus demonstrates a few tiny nabothian cyst, largest 4 mm. Endometrial stripe measures 10.7 mm. Tiny endometrial cavity fluid in the lower uterine segment/endocervix. Right ovary measures 2.9 x 2.5 x 2.6 cm and the left measures 3.5 x 2.1 x 2.8 cm. Normal follicular cysts and perfusion bilaterally. Tiny cul-de-sac fluid presumed physiologic from ruptured/leaking cyst. Impression: 1. Prominent endometrial stripe with tiny endometrial cavity fluid. Correlate with patient's menstrual cycle. 2. Tiny physiologic cul-de-sac fluid. 3. Incidental nabothian cysts. Comment: Preliminary report was given.
== END 2022-01-25 23:41 | disposition home or self-care (01) ==
LOC: ED 16:38
DX: R10.2 Pelvic and perineal pain (principal); R10.32 Left lower quadrant pain; N89.8 Other specified noninflammatory disorders of vagina
CPT/HCPCS: 36000; 36415; 74177; 76830; 80053; 80307; 81015; 82150; 83690; 84703; 85025; 87491; 87591; 96360; 96372; 96374; 96375; 96376; 99284; J0696; J1885; J2405; J3010

== ENCOUNTER 2023-05-09 02:08 | Emergency (ER) | payer BC ==
[2023-05-09 02:43] VITALS: RESP 18; TEMP 99.2
--- NOTE | 2023-05-09 02:52 | ERPHSYRPT ---
- History of Present Illness Time Seen by Provider: 05/09/23 02:47 Source: patient Exam Limitations: no limitations Patient Subjective Stated Complaint: facial pain all over, sinus pain, headache, pain in the back of neck, pain on the right lower quadrant. Triage Nursing Assessment: Patient presents with migraine headache, facial pain, sinus pain, back of neck pain, right lower quad pain. States has been having diarrhea x 2 days. Migraine and facial pain since the . Feels nauseated. States has taken several cold medications and nothing is helping. Physician History: For the past 8 days pt has had a constant sharp generalized headache; for the past 2 days diarrhea, nausea and right sided/epigastric pain; earaches today; denies chest pain and shortness of air. Allergies/Adverse Reactions: acetaminophen [From [place]] Allergy (Verified 05/09/23 02:21) adhesive tape Allergy (Verified 05/09/23 02:21) coconut Allergy (Verified 05/09/23 02:21) Rash hydrocodone [From [place]] Allergy (Verified 05/09/23 02:21) hydrogen peroxide Allergy (Verified 05/09/23 02:21) Rash Home Medications: Aspirin EC 81 mg [Ecotrin 81 mg] 81 mg PO DAILY 05/09/23 [History] D- [place] 1 cap PO DAILY 05/09/23 [History] Lactobacillus Acidophilus [Probiotic] 1 each PO DAILY 05/09/23 [History] Hx Tetanus, Diphtheria Vaccination/Date Given: No Hx Influenza Vaccination/Date Given: No Hx Pneumococcal Vaccination/Date Given: No Immunizations Up to Date: No Travel Risk - International Travel Have you traveled outside of the country in past 3 weeks: No - Coronavirus Screening Are you exhibiting any of the following symptoms?: Yes Symptoms: Fever, Vomiting/Diarrhea, Headaches/Body Aches/Fatigue Close contact with a COVID-19 positive Pt in past 14-21 Days: No - Vaccine Status Have you recieved a Covid-19 vaccination: No - Review of Systems Constitutional: No Fever Respiratory: No Dyspnea Cardiac: No Chest Pain Abdominal/Gastrointestinal: Abdominal Pain, Nausea, Diarrhea, No Vomiting Genitourinary Symptoms: No Dysuria Neurological: Headache - Past Medical History Pertinent Past Medical History: Yes Neurological History: No Pertinent History ENT History: No Pertinent History Cardiac History: Deep Vein Thrombosis Respiratory History: No Pertinent History Endocrine Medical History: No Pertinent History Musculoskeletal History: Degenerative Disk Disease, Other GI Medical History: No Pertinent History History: No Pertinent History Psycho-Social History: No Pertinent History Female Reproductive Disorders: Endometriosis Other Medical History: CHRONIC BACK PAIN, Blood clot right axiallary area - Past Surgical History Past Surgical History: Yes Neuro Surgical History: No Pertinent History Cardiac: No Pertinent History Respiratory: No Pertinent History Gastrointestinal: Cholecystectomy Genitourinary: No Pertinent History Musculoskeletal: No Pertinent History Female Surgical History: Tubal Ligation Other Surgical History: Finger surgery, wart laser removal from hand. preet fallopian tubes removed December 04, 2021 by Roman Mena in [facility] - Social History Smoking Status: Never smoker Exposure to second hand smoke: Yes Drug Use: other Patient Lives Alone: No - Female History Hx Last Menstrual Period: 05/02/2023 Hx Now: No - Nursing Vital Signs Nursing Vital Signs: Initial Vital Signs Temperature 99.2 F 05/09/23 02:28 Pulse Rate 100 H 05/09/23 02:28 Respiratory Rate 18 05/09/23 02:28 Blood Pressure 119/74 05/09/23 02:28 O2 Sat by Pulse Oximetry 98 05/09/23 02:28 Pain Scale Pain Intensity 6 - Physical Exam General Appearance: alert Eye Exam: PERRL/EOMI Ears, Nose, Throat Exam: TMs normal, pharyngeal erythema (mild) Neck Exam: normal inspection Respiratory Exam: normal breath sounds, airway intact Cardiovascular Exam: normal heart sounds Gastrointestinal/Abdominal Exam: soft, other (B.S. 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 Right renal two tiny non-obstructing calculi the largest measures 1.5 mm. No hydronephrosis.) Head CT Interpretation: Tele-radiologist Report (Unremarkable CT study of the brain. No acute abnormality on CT bases.) Ordered Tests: Active Orders 24 hr Category Date Time Status IV Insertion STAT Care 05/09/23 02:59 Active ABDOMEN AND PELVIS W/0 CONTRAS [CT] Stat Exams 05/09/23 03:00 Completed HEAD WITHOUT CONTRAST [CT] Stat Exams 05/09/23 02:59 Completed AMYLASE Stat Lab 05/09/23 04:02 Completed CBC W DIFF Stat Lab 05/09/23 04:02 Completed CMP Stat Lab 05/09/23 04:02 Completed HCG QUALITATIVE, SERUM Stat Lab 05/09/23 04:02 Completed LIPASE Stat Lab 05/09/23 04:02 Completed UA W/RFX UR CULTURE Stat Lab 05/09/23 03:00 Completed Urine Triage Profile Stat Lab 05/09/23 03:00 Completed Medication Summary Discontinued Medications Generic Name Dose Route Start Last Admin Trade Name Ohq PRN Reason Stop Dose Admin Fentanyl Citrate 25 mcg 05/09/23 03:47 05/09/23 03:56 Fentanyl Citrate 100 Mcg/2 Ml* Vial IV 05/09/23 03:48 25 mcg STAT ONE Administration Fentanyl Citrate Confirm 05/09/23 03:54 Fentanyl Citrate 100 Mcg/2 Ml* Vial Administered 05/09/23 03:55 Dose 100 mcg .ROUTE .STK-MED ONE Sodium Chloride 1,000 mls @ 999 mls/hr 05/09/23 02:59 05/09/23 04:29 Sodium Chloride 0.9% 1000 Ml IV 05/09/23 03:59 Infused .Q1H1M STA Infusion Sodium Chloride Confirm 05/09/23 03:05 Sodium Chloride 0.9% 1000 Ml Administered 05/09/23 03:06 Dose 1,000 mls @ ud .ROUTE .STK-MED ONE Morphine Sulfate 2 mg 05/09/23 03:02 Morphine Sulfate 2 Mg/Ml Inj IV 05/09/23 03:03 STAT ONE Morphine Sulfate Confirm 05/09/23 03:05 Morphine Sulfate 2 Mg/Ml Inj Administered 05/09/23 03:06 Dose 2 mg .ROUTE .STK-MED ONE Ondansetron HCl 4 mg 05/09/23 02:59 05/09/23 03:21 Ondansetron Hcl 4 Mg/2 Ml Vial IV 05/09/23 03:00 4 mg STAT ONE Administration Ondansetron HCl Confirm 05/09/23 03:05 Ondansetron Hcl 4 Mg/2 Ml Vial Administered 05/09/23 03:06 Dose 4 mg .ROUTE .STK-MED ONE Lab/Rad Data: Laboratory Result Diagrams 05/09/23 04:02 05/09/23 04:02 Laboratory Results 05/09/23 05/09/23 05/09/23 Range/Units 04:02 04:02 04:02 WBC (4.0-10.5) x10^3/uL RBC (4.1-5.4) x10^6/uL Hgb (12.0-16.0) g/dL Hct (35-47) % MCV (78-100) fL MCH (26-32) pg MCHC (32-36) g/dL RDW (11.5-14.0) % Plt Count (150-450) x10^3/uL MPV (7.5-11.0) fL Gran % (36.0-66.0) % Immature Gran % (Auto) (0.00-0.4) % Nucleat RBC Rel Count (0.00-0.1) % Eos # (Auto) (0-0.5) x10^3/uL Immature Gran # (Auto) (0.00-0.03) x10^3u/L Absolute Lymphs (auto) (1.0-4.6) x10^3/uL Absolute Monos (auto) (0.0-1.3) x10^3/uL Absolute Nucleated RBC (0.00-0.01) x10^3u/L Lymphocytes % (24.0-44.0) % Monocytes % (0.0-12.0) % Eosinophils % (0.00-5.0) % Basophils % (0.0-0.4) % Absolute Granulocytes (1.4-6.9) x10^3/uL Basophils # (0-0.4) x10^3/uL Sodium (137-145) mmol/L Potassium (3.5-5.1) mmol/L Chloride (98-107) mmol/L Carbon Dioxide (22-30) mmol/L Anion Gap (5-15) MEQ/L BUN (7-17) mg/dL Creatinine (0.52-1.04) mg/dL Estimated GFR ML/MIN Glucose (74-106) mg/dL Calcium (8.4-10.2) mg/dL Total Bilirubin (0.2-1.3) mg/dL AST (14-36) U/L ALT (0-35) U/L Alkaline Phosphatase (38-126) U/L Serum Total Protein (6.3-8.2) g/dL Albumin (3.5-5.0) g/dL Amylase (30-110) U/L Lipase (23-300) U/L Serum HCG, Qual NEGATIVE (NEGATIVE) Urine Color (Yellow) Urine Appearance (Clear) Urine pH (4.6-8.0) Ur Specific [place] (1.005-1.030) Urine Protein (Negative) Urine Glucose (UA) (Negative) mg/dL Urine Ketones (Negative) Urine Blood (Negative) Urine Nitrite (Negative) Urine Bilirubin (Negative) Urine Urobilinogen (0.2) mg/dL Ur Leukocyte Esterase (Negative) U Hyaline Cast (Auto) (0-2) /LPF Urine Microscopic RBC (0-5) /HPF Urine Microscopic WBC (0-5) /HPF Ur Epithelial Cells (None Seen) /HPF Urine Bacteria (None Seen) /HPF Urine Culture Reflexed (NO) Urine Opiates Level (NEGATIVE) Ur Methadone (NEGATIVE) Urine Barbiturates (NEGATIVE) Ur Phencyclidine (PCP) (NEGATIVE) Urine Amphetamine (NEGATIVE) U Benzodiazepine Level (NEGATIVE) Urine Cocaine (NEGATIVE) Urine Marijuana (THC) (NEGATIVE) Influenza Type A Ag NEGATIVE (NEGATIVE) Influenza Type B Ag NEGATIVE (NEGATIVE) RSV (PCR) NEGATIVE (NEGATIVE) SARS-CoV-2 (PCR) NEGATIVE (NEGATIVE) Group A Strep Antibody NOT DETECTED (NEGATIVE) 05/09/23 05/09/23 05/09/23 Range/Units 04:02 04:02 03:00 WBC 6.6 (4.0-10.5) x10^3/uL RBC 4.91 (4.1-5.4) x10^6/uL Hgb 15.3 (12.0-16.0) g/dL Hct 45.4 (35-47) % MCV 92.5 (78-100) fL MCH 31.2 (26-32) pg MCHC 33.7 (32-36) g/dL RDW 12.1 (11.5-14.0) % Plt Count 398 (150-450) x10^3/uL MPV 9.9 (7.5-11.0) fL Gran % 67.5 H (36.0-66.0) % Immature Gran % (Auto) 0.2 (0.00-0.4) % Nucleat RBC Rel Count 0.0 (0.00-0.1) % Eos # (Auto) 0.02 (0-0.5) x10^3/uL Immature Gran # (Auto) 0.01 (0.00-0.03) x10^3u/L Absolute Lymphs (auto) 1.57 (1.0-4.6) x10^3/uL Absolute Monos (auto) 0.50 (0.0-1.3) x10^3/uL Absolute Nucleated RBC 0.00 (0.00-0.01) x10^3u/L Lymphocytes % 23.9 L (24.0-44.0) % Monocytes % 7.6 (0.0-12.0) % Eosinophils % 0.3 (0.00-5.0) % Basophils % 0.5 (0.0-0.4) % Absolute Granulocytes 4.45 (1.4-6.9) x10^3/uL Basophils # 0.03 (0-0.4) x10^3/uL Sodium 138 (137-145) mmol/L Potassium 3.9 (3.5-5.1) mmol/L Chloride 105 (98-107) mmol/L Carbon Dioxide 22 (22-30) mmol/L Anion Gap 15.5 H (5-15) MEQ/L BUN 8 (7-17) mg/dL Creatinine 0.52 (0.52-1.04) mg/dL Estimated GFR 128.9 ML/MIN Glucose 97 (74-106) mg/dL Calcium 10.1 (8.4-10.2) mg/dL Total Bilirubin 0.70 (0.2-1.3) mg/dL AST 27 (14-36) U/L ALT 14 (0-35) U/L Alkaline Phosphatase 55 (38-126) U/L Serum Total Protein 8.5 H (6.3-8.2) g/dL Albumin 5.2 H (3.5-5.0) g/dL Amylase 78 (30-110) U/L Lipase 96 (23-300) U/L Serum HCG, Qual (NEGATIVE) Urine Color (Yellow) Urine Appearance (Clear) Urine pH (4.6-8.0) Ur Specific [place] (1.005-1.030) Urine Protein (Negative) Urine Glucose (UA) (Negative) mg/dL Urine Ketones (Negative) Urine Blood (Negative) Urine Nitrite (Negative) Urine Bilirubin (Negative) Urine Urobilinogen (0.2) mg/dL Ur Leukocyte Esterase (Negative) U Hyaline Cast (Auto) (0-2) /LPF Urine Microscopic RBC (0-5) /HPF Urine Microscopic WBC (0-5) /HPF Ur Epithelial Cells (None Seen) /HPF Urine Bacteria (None Seen) /HPF Urine Culture Reflexed (NO) Urine Opiates Level NEGATIVE (NEGATIVE) Ur Methadone NEGATIVE (NEGATIVE) Urine Barbiturates NEGATIVE (NEGATIVE) Ur Phencyclidine (PCP) NEGATIVE (NEGATIVE) Urine Amphetamine NEGATIVE (NEGATIVE) U Benzodiazepine Level NEGATIVE (NEGATIVE) Urine Cocaine NEGATIVE (NEGATIVE) Urine Marijuana (THC) NEGATIVE (NEGATIVE) Influenza Type A Ag (NEGATIVE) Influenza Type B Ag (NEGATIVE) RSV (PCR) (NEGATIVE) SARS-CoV-2 (PCR) (NEGATIVE) Group A Strep Antibody (NEGATIVE) 05/09/23 Range/Units 03:00 WBC (4.0-10.5) x10^3/uL RBC (4.1-5.4) x10^6/uL Hgb (12.0-16.0) g/dL Hct (35-47) % MCV (78-100) fL MCH (26-32) pg MCHC (32-36) g/dL RDW (11.5-14.0) % Plt Count (150-450) x10^3/uL MPV (7.5-11.0) fL Gran % (36.0-66.0) % Immature Gran % (Auto) (0.00-0.4) % Nucleat RBC Rel Count (0.00-0.1) % Eos # (Auto) (0-0.5) x10^3/uL Immature Gran # (Auto) (0.00-0.03) x10^3u/L Absolute Lymphs (auto) (1.0-4.6) x10^3/uL Absolute Monos (auto) (0.0-1.3) x10^3/uL Absolute Nucleated RBC (0.00-0.01) x10^3u/L Lymphocytes % (24.0-44.0) % Monocytes % (0.0-12.0) % Eosinophils % (0.00-5.0) % Basophils % (0.0-0.4) % Absolute Granulocytes (1.4-6.9) x10^3/uL Basophils # (0-0.4) x10^3/uL Sodium (137-145) mmol/L Potassium (3.5-5.1) mmol/L Chloride (98-107) mmol/L Carbon Dioxide (22-30) mmol/L Anion Gap (5-15) MEQ/L BUN (7-17) mg/dL Creatinine (0.52-1.04) mg/dL Estimated GFR ML/MIN Glucose (74-106) mg/dL Calcium (8.4-10.2) mg/dL Total Bilirubin (0.2-1.3) mg/dL AST (14-36) U/L ALT (0-35) U/L Alkaline Phosphatase (38-126) U/L Serum Total Protein (6.3-8.2) g/dL Albumin (3.5-5.0) g/dL Amylase (30-110) U/L Lipase (23-300) U/L Serum HCG, Qual (NEGATIVE) Urine Color Yellow (Yellow) Urine Appearance Clear (Clear) Urine pH 6.5 (4.6-8.0) Ur Specific [place] <=1.005 (1.005-1.030) Urine Protein Negative (Negative) Urine Glucose (UA) Negative (Negative) mg/dL Urine Ketones Negative (Negative) Urine Blood Negative (Negative) Urine Nitrite Negative (Negative) Urine Bilirubin Negative (Negative) Urine Urobilinogen 0.2 (0.2) mg/dL Ur Leukocyte Esterase Negative (Negative) U Hyaline Cast (Auto) NONE SEEN (0-2) /LPF Urine Microscopic RBC 0-2 (0-5) /HPF Urine Microscopic WBC 0-2 (0-5) /HPF Ur Epithelial Cells None Seen (None Seen) /HPF Urine Bacteria None Seen (None Seen) /HPF Urine Culture Reflexed NO (NO) Urine Opiates Level (NEGATIVE) Ur Methadone (NEGATIVE) Urine Barbiturates (NEGATIVE) Ur Phencyclidine (PCP) (NEGATIVE) Urine Amphetamine (NEGATIVE) U Benzodiazepine Level (NEGATIVE) Urine Cocaine (NEGATIVE) Urine Marijuana (THC) (NEGATIVE) Influenza Type A Ag (NEGATIVE) Influenza Type B Ag (NEGATIVE) RSV (PCR) (NEGATIVE) SARS-CoV-2 (PCR) (NEGATIVE) Group A Strep Antibody (NEGATIVE) - Progress Progress: improved Counseled pt/family regarding: lab results, diagnosis, need for follow-up, rad results Medical Desision Making - Diagnostic Testing Diagnostic test were ordered, analyzed, and reviewed by me: Yes Radiological Interpretation: Teleradiologist Report - Departure Departure Disposition: Home Clinical Impression: Abdominal pain, Headache, Diarrhea Condition: Stable Critical Care Time: No Referrals: HÉCTOR MIRELES, ZARA [Primary Care Provider] - Follow up/PCP as directed Instructions: Headache, Adult (DC), Diarrhea and Traveler's Diarrhea, Adult (DC), Severe Abdominal Pain, Adult (DC) Additional Instructions: Follow up with private doctor today. Prescriptions: Ondansetron ODT 4 MG [Zofran Odt 4 mg] 4 mg PO Q6H PRN PRN #10 tablet PRN Reason: Nausea
[2023-05-09] MEDS ORDERED: Sodium Chloride 0.9% 1000 ML 1,000 ML IV STA (02:59)
[2023-05-09] MEDS ORDERED: Zofran 4 MG/2 ML VIAL IV ONE (02:59)
[2023-05-09] MEDS ORDERED: MORPHINE SULFATE 2 MG INJ IV ONE (03:02)
[2023-05-09] MEDS ORDERED: MORPHINE SULFATE 2 MG INJ ONE (03:05)
[2023-05-09] MEDS ORDERED: Zofran 4 MG/2 ML VIAL ONE (03:05)
[2023-05-09] MEDS ORDERED: Sodium Chloride 0.9% 1000 ML 1,000 ML ONE (03:05)
[2023-05-09 03:22] LABS: Appearance Clear (Clear); Bacteria None Seen /HPF (None Seen); Bilirubin Negative (Negative); Blood Negative (Negative); Epithelial Cells None Seen /HPF (None Seen); Glucose, Urine Negative (Negative); Hyaline Casts NONE SEEN /LPF (0-2); Ketones Negative (Negative); Leukocyte Esterase Negative (Negative); Nitrite Negative (Negative); Ph 6.5 (4.6-8.0); Protein,Urine Dip Negative (Negative); RBC 0-2 /HPF (0-5); Specific Gravity <=1.005 (1.005-1.030); Urobilinogen 0.2 mg/dL (0.2); WBC 0-2 /HPF (0-5)
[2023-05-09 03:30] LABS: ADD URINE CULTURE? NO (NO)
[2023-05-09 03:33] LABS: Amphetamine,Urine NEGATIVE (NEGATIVE); Barbiturate,Urine NEGATIVE (NEGATIVE); Benzodiazepine,Urine NEGATIVE (NEGATIVE); Cocaine,Urine NEGATIVE (NEGATIVE); Methadone,Urine NEGATIVE (NEGATIVE); Opiate,Urine NEGATIVE (NEGATIVE); PCP,Urine NEGATIVE (NEGATIVE); THC,Urine NEGATIVE (NEGATIVE)
[2023-05-09] MEDS ORDERED: SUBLIMAZE 100 MCG/2 ML IV ONE (03:47)
[2023-05-09] MEDS ORDERED: SUBLIMAZE 100 MCG/2 ML ONE (03:54)
--- NOTE | 2023-05-09 03:58 | XRAY ---
CLINICAL HISTORY: pain TECHNIQUE: A CT scan of the abdomen and pelvis was performed without contrast. Coronal and sagittal reconstructive images were also obtained. COMPARISON: None FINDINGS: Abdomen: The liver is normal in size. No focal or diffuse parenchymal abnormality. The portal vein, intrahepatic biliary radicals, and the bile ducts are normal. Cholecystectomy. The spleen, pancreas, and adrenal glands are unremarkable. The kidneys are unremarkable. They are normal in size and shape. No left renal calculi. Right renal two tiny non-obstructing calculi the largest measures 1.5 mm (HU 117). No masses or hydronephrosis. The ascending colon, the transverse colon, the descending colon, visualized small bowel loops are unremarkable. The appendix could not be identified; however, no CT evidence of acute appendicitis was noticed. There is no evidence of significant enlargement of the mesenteric or retroperitoneal lymph nodes. No ascites. Pelvis: The urinary bladder is unremarkable. No gross uterine or adnexal abnormality could be identified. The rectosigmoid colon is unremarkable. No evidence of pelvic lymphadenopathy. A scan through the lower chest reveals an unremarkable lung basis. Levoscoliosis of the lumbar spine. Degenerative changes of the scanned spine. IMPRESSION: 1. No evident acute abdominopelvic abnormality could be identified. 2. Right renal two tiny non-obstructing calculi the largest measures 1.5 mm (HU 117). No hydronephrosis. Electronically Signed by: Emilia Garcia MD. (05/09/2023 03:53:31 EST)
--- NOTE | 2023-05-09 04:00 | XRAY ---
CLINICAL HISTORY: headache TECHNIQUE: An axial non-contrast CT scan of the brain was performed from the skull base to the high parietal region. Coronal and sagittal reformatted images were performed. COMPARISON: None FINDINGS: Normal cerebral parenchymal attenuation. No intra or extra-axial areas of acute blood densities or collections. No calvarial fracture lines or depressed bony segments. No midline shifts or deformity. Normal CT appearance of the posterior fossa structures namely the cerebellar hemispheres, brainstem, and cerebellar peduncles. Minimal deviation of the nasal septum to the left side. IMPRESSION: 1. Unremarkable CT study of the brain. 2. No acute abnormality on CT bases. Electronically Signed by: Emilia Garcia MD. (05/09/2023 03:54:56 EST)
[2023-05-09 04:05] LABS: Absolute Neutrophil Ct (ANC) 4.45 x10^3/uL (1.4-6.9); BASOPHIL % 0.5 % (0.0-0.4); Basophil (Absolute #) 0.03 x10^3/uL (0-0.4); Eosinophil % 0.3 % (0.00-5.0); Eosinophil (Absolute #) 0.02 x10^3/uL (0-0.5); Hematocrit 45.4 % (35-47); Hemoglobin 15.3 g/dL (12.0-16.0); IMMATURE GRAN # 0.01 x10^3u/L (0.00-0.03); IMMATURE GRAN % 0.2 % (0.00-0.4); Lymphocyte (Absolute #) 1.57 x10^3/uL (1.0-4.6); Lymphocytes % 23.9 % (24.0-44.0); Mean Cell Volume 92.5 fL (78-100); Mean Corpuscular Hemoglobin 31.2 pg (26-32); Mean Corpuscular Hgb Concent. 33.7 g/dL (32-36); Mean Platelet Volume 9.9 fL (7.5-11.0); Monocytes % 7.6 % (0.0-12.0); Neutrophil % 67.5 % (36.0-66.0); Platelet Count 398 x10^3/uL (150-450); Red Blood Count 4.91 x10^6/uL (4.1-5.4); Red Cell Distribution Width 12.1 % (11.5-14.0); White Blood Count 6.6 x10^3/uL (4.0-10.5)
[2023-05-09 04:20] LABS: ALBUMIN 5.2 g/dL (3.5-5.0); ANION GAP 15.5 MEQ/L (5-15); BILIRUBIN,TOTAL 0.7 mg/dL (0.2-1.3); Calcium 10.1 mg/dL (8.4-10.2); Creatinine 1 0.52 mg/dL (0.52-1.04); EST GLOMERULAR FILTRATION RATE 128.9 ML/MIN; Potassium 3.9 mmol/L (3.5-5.1); Total Protein 8.5 g/dL (6.3-8.2)
[2023-05-09 04:23] LABS: HCG SERUM TEST NEGATIVE (NEGATIVE)
[2023-05-09 04:41] LABS: INFLUENZA A NEGATIVE (NEGATIVE); INFLUENZA B NEGATIVE (NEGATIVE); RESPIRATORY SYNCTIAL VIRUS NEGATIVE (NEGATIVE); SARS-CoV-2 Xpert Express NEGATIVE (NEGATIVE)
[2023-05-09 05:02] VITALS: BP 103/57; PULSE 84; O2SAT 99
== END 2023-05-09 05:10 | disposition home or self-care (01) ==
LOC: ED 02:08
DX: R51.9 Headache, unspecified (principal); R10.31 Right lower quadrant pain; R10.13 Epigastric pain; R19.7 Diarrhea, unspecified; H92.09 Otalgia, unspecified ear; Z79.899 Other long term (current) drug therapy; Z28.310 Unvaccinated for COVID-19
CPT/HCPCS: 0241U; 36000; 36415; 70450; 74176; 80053; 80307; 81001; 82150; 83690; 84703; 85025; 87651; 96374; 96375; 99284; J2270; J2405; J3010

== ENCOUNTER 2024-07-29 00:56 | Emergency (ER) | payer BC ==
--- NOTE | 2024-07-29 01:08 | ERPHSYRPT ---
- History of Present Illness Time Seen by Provider: 07/29/24 01:02 Historian: patient, family Exam Limitations: no limitations Physician History: Pt had onset of CP on July 20 which resolved - this recurred just today and she came to ER. No prior CAD but had right axillary blood clot/DVT in 2018 and takes daily 81 mg ASA for this and took this today. No recent surgeries. had hysterectomy. Nonsmoker/ Discussed with pt and available family risks and benefits of testing/Tx including CBC, CMP, EKG, Trop, BNP, D-dimer, UA, Amylase, Lipase, , CXR, NTG, pain med, and they wish to proceed so these are ordered. Results discussed with pt and available family. pain was 8-9 /10 at worst and 4/10 after Tx but actually worse with NTG. Timing/Duration: today Quality: burning, stabbing Location: central Severity of Pain-Max: moderate Severity of Pain-Current: moderate Modifying Factors: Improves With: nothing Associated Symptoms: nausea Prior Chest Pain/Cardiac Workup: no prior cardiac workup Nitro Today/Relief: 0.4 mg x 1, provided by ED, no relief (got worse) Aspirin Treatment Today: 81 mg x 1, 81 mg x 3, provided at home, provided by ED Allergies/Adverse Reactions: acetaminophen [From [place]] Allergy (Verified 05/09/23 02:21) adhesive tape Allergy (Verified 05/09/23 02:21) coconut Allergy (Verified 05/09/23 02:21) Rash hydrocodone [From [place]] Allergy (Verified 05/09/23 02:21) hydrogen peroxide Allergy (Verified 05/09/23 02:21) Rash Home Medications: Aspirin EC 81 mg [Ecotrin 81 mg] 81 mg PO DAILY 05/09/23 [History] D- [place] 1 cap PO DAILY 05/09/23 [History] Lactobacillus Acidophilus [Probiotic] 1 each PO DAILY 05/09/23 [History] Hx Tetanus, Diphtheria Vaccination/Date Given: No Hx Influenza Vaccination/Date Given: No Hx Pneumococcal Vaccination/Date Given: No - Review of Systems Constitutional: No Fever, No Chills Eyes: No Symptoms Ears, Nose, & Throat: No Symptoms Respiratory: No Cough, No Dyspnea Cardiac: Chest Pain, No Edema, No Syncope Abdominal/Gastrointestinal: Nausea, No Abdominal Pain, No Vomiting, No Diarrhea Genitourinary Symptoms: No Dysuria Musculoskeletal: No Back Pain, No Neck Pain Skin: No Rash Neurological: No Dizziness, No Focal Weakness, No Sensory Changes Psychological: No Symptoms Endocrine: No Symptoms Hematologic/Lymphatic: No Symptoms Immunological/Allergic: No Symptoms All Other Systems: Reviewed and Negative - Past Medical History Pertinent Past Medical History: Yes Neurological History: No Pertinent History ENT History: No Pertinent History Cardiac History: Deep Vein Thrombosis Respiratory History: No Pertinent History Endocrine Medical History: No Pertinent History Musculoskeletal History: Degenerative Disk Disease, Other GI Medical History: No Pertinent History History: No Pertinent History Psycho-Social History: No Pertinent History Female Reproductive Disorders: Endometriosis Other Medical History: CHRONIC BACK PAIN, Blood clot right axiallary area - Past Surgical History Past Surgical History: Yes Neuro Surgical History: No Pertinent History Cardiac: No Pertinent History Respiratory: No Pertinent History Gastrointestinal: Cholecystectomy Genitourinary: No Pertinent History Musculoskeletal: No Pertinent History Female Surgical History: Tubal Ligation Other Surgical History: Finger surgery, wart laser removal from hand. preet fallopian tubes removed December 04, 2021 by Roman Mena in [facility] - Social History Smoking Status: Never smoker Exposure to second hand smoke: Yes Drug Use: other Patient Lives Alone: No - Nursing Vital Signs Nursing Vital Signs: Initial Vital Signs Temperature 98.8 F 07/29/24 00:58 Pulse Rate 124 H 07/29/24 00:58 Respiratory Rate 22 07/29/24 00:58 Blood Pressure 114/78 07/29/24 00:58 O2 Sat by Pulse Oximetry 100 07/29/24 00:58 Pain Scale Pain Intensity 3 - Physical Exam General Appearance: no apparent distress, alert Eye Exam: PERRL/EOMI, eyes nml inspection Ears, Nose, Throat Exam: normal ENT inspection, moist mucous membranes Neck Exam: normal inspection, non-tender, supple, full range of motion Respiratory Exam: normal breath sounds, lungs clear, No respiratory distress Cardiovascular Exam: regular rate/rhythm, normal heart sounds Gastrointestinal/Abdomen Exam: soft, No tenderness, No mass Pelvic Exam: deferred Rectal Exam: deferred Back Exam: normal inspection, No CVA tenderness, No vertebral tenderness Extremity Exam: normal inspection, normal range of motion Neurologic Exam: alert, oriented x 3, cooperative, normal mood/affect, sensation nml, No motor deficits Skin Exam: normal color, warm, dry SpO2 Interpretation: normal SpO2: 95 O2 Delivery: Room Air - Course Nursing assessment & vital signs reviewed: Yes EKG Interpreted by Me: Sinus Rhythm, Sinus Tach, Right [place] Deviation, NORMAL INTERVALS, NORMAL QRS, Non-specific ST Changes - Radiology Exams Chest X-ray Interpretation: Interpreted by me, No Pneumothorax, No Infiltrates, Other (granulomata) Ordered Tests: Active Orders 24 hr Category Date Time Status EKG-ER Only STAT Care 07/29/24 01:08 Active IV Insertion STAT Care 07/29/24 01:08 Active CHEST 1 VIEW (PORTABLE) Stat Exams 07/29/24 01:10 Taken AMYLASE Stat Lab 07/29/24 01:13 Completed CBC W DIFF Stat Lab 07/29/24 01:13 Completed CMP Stat Lab 07/29/24 01:13 Completed D-DIMER QUANTITATIVE Stat Lab 07/29/24 01:13 Completed LIPASE Stat Lab 07/29/24 01:13 Completed Lactic Acid Stat Lab 07/29/24 01:38 Completed Lactic Acid Stat Lab 07/29/24 03:48 Received NT PRO BNPII Stat Lab 07/29/24 01:13 Completed TROPONIN Q4H Lab 07/29/24 01:13 Completed TROPONIN Q4H Lab 07/29/24 05:15 Ordered TROPONIN Q4H Lab 07/29/24 09:15 Ordered UA W/RFX UR CULTURE Stat Lab 07/29/24 01:13 Completed Medication Summary Discontinued Medications Generic Name Dose Route Start Last Admin Trade Name Freq PRN Reason Stop Dose Admin Aspirin Confirm 07/29/24 01:18 Aspirin 81 Mg Tab.Chew Administered 07/29/24 01:19 Dose 243 mg .ROUTE .STK-MED ONE Aspirin 243 mg 07/29/24 01:05 07/29/24 02:46 Aspirin 81 Mg Tab.Chew PO 07/29/24 01:06 243 mg STAT ONE Administration Famotidine 20 mg 07/29/24 01:08 07/29/24 01:34 Famotidine 20 Mg/1 Vial IV 07/29/24 01:09 20 mg STAT ONE Administration Famotidine Confirm 07/29/24 01:33 Famotidine 20 Mg/1 Vial Administered 07/29/24 01:34 Dose 20 mg IV .STK-MED ONE Lorazepam 1 mg 07/29/24 02:05 07/29/24 02:28 Lorazepam 1 Mg Tablet PO 07/29/24 02:06 1 mg STAT ONE Administration Lorazepam Confirm 07/29/24 02:27 Lorazepam 1 Mg Tablet Administered 07/29/24 02:28 Dose 1 mg .ROUTE .STK-MED ONE Nitroglycerin 0.4 mg 07/29/24 01:16 07/29/24 01:34 Nitroglycerin 0.4 Mg (Ed) 0.4 Mg Tab.Subl SL 07/29/24 01:17 0.4 mg STAT ONE Administration Nitroglycerin Confirm 07/29/24 01:18 Nitroglycerin 0.4 Mg (Ed) 0.4 Mg Tab.Subl Administered 07/29/24 01:19 Dose 0.4 mg SL .STK-MED ONE Ondansetron HCl 4 mg 07/29/24 01:08 07/29/24 01:33 Ondansetron Hcl 4 Mg/2 Ml Vial IV 07/29/24 01:09 4 mg STAT ONE Administration Ondansetron HCl Confirm 07/29/24 01:18 Ondansetron Hcl 4 Mg/2 Ml Vial Administered 07/29/24 01:19 Dose 4 mg .ROUTE .STK-MED ONE Oxycodone HCl 5 mg 07/29/24 01:41 Oxycodone Hcl 5 Mg Ir Tab PO 07/29/24 01:42 STAT ONE Pantoprazole Sodium 40 mg 07/29/24 01:08 07/29/24 01:34 Pantoprazole 40 Mg Vial IV 07/29/24 01:09 40 mg STAT ONE Administration Pantoprazole Sodium Confirm 07/29/24 01:33 Pantoprazole 40 Mg Vial Administered 07/29/24 01:34 Dose 40 mg IV .STK-MED ONE Lab/Rad Data: Laboratory Result Diagrams 07/29/24 01:13 07/29/24 01:13 Laboratory Results 07/29/24 07/29/24 07/29/24 Range/Units 01:38 01:13 01:13 WBC (3.98-10.04) x10^3/uL RBC (3.93-5.22) x10^6/uL Hgb (11.2-15.7) g/dL Hct (34.1-44.9) % MCV (79.4-94.8) fL MCH (25.6-32.2) pg MCHC (32.2-35.5) g/dL RDW (11.7-14.4) % Plt Count (182-369) x10^3/uL MPV (9.4-12.3) fL Gran % (34.0-71.1) % Immature Gran % (Auto) (0.001-0.429) % Nucleat RBC Rel Count (0.00-0.2) % Eos # (Auto) (0.04-0.36) x10^3/uL Immature Gran # (Auto) (0.001-0.031) x10^3u/L Absolute Lymphs (auto) (1.18-3.74) x10^3/uL Absolute Monos (auto) (0.24-0.86) x10^3/uL Absolute Nucleated RBC (0.00-0.012) x10^3u/L Lymphocytes % (19.3-51.7) % Monocytes % (4.7-12.5) % Eosinophils % (0.7-5.8) % Basophils % (0.1-1.2) % Absolute Granulocytes (1.56-6.13) x10^3/uL Basophils # (0.01-0.08) x10^3/uL D-Dimer 0.28 (0.0-0.50) mg/L Sodium (135-145) mmol/L Potassium (3.5-5.1) mmol/L Chloride (98-107) mmol/L Carbon Dioxide (22-30) mmol/L Anion Gap (5-15) MEQ/L BUN (7-17) mg/dL Creatinine (0.52-1.04) mg/dL Estimated GFR ML/MIN Glucose (74-106) mg/dL Lactic Acid 3.3 H (0.4-2.0) Calcium (8.4-10.2) mg/dL Total Bilirubin (0.2-1.3) mg/dL AST (14-36) U/L ALT (0-35) U/L Alkaline Phosphatase (38-126) U/L Troponin I < 0.012 (0.000-0.033) ng/mL NT-Pro-B Natriuret Pep (<300) pg/mL Serum Total Protein (6.3-8.2) g/dL Albumin (3.5-5.0) g/dL Amylase (30-110) U/L Lipase (23-300) U/L Urine Color (Yellow) Urine Appearance (Clear) Urine pH (4.6-8.0) Ur Specific [place] (1.005-1.030) Urine Protein (Negative) Urine Glucose (UA) (Negative) mg/dL Urine Ketones (Negative) Urine Blood (Negative) Urine Nitrite (Negative) Urine Bilirubin (Negative) Urine Urobilinogen (0.2) mg/dL Ur Leukocyte Esterase (Negative) U Hyaline Cast (Auto) (0-2) /LPF Urine Microscopic RBC (0-5) /HPF Urine Microscopic WBC (0-5) /HPF Ur Epithelial Cells (None Seen) /HPF Urine Bacteria (None Seen) /HPF Urine Culture Reflexed (NO) 07/29/24 07/29/24 07/29/24 Range/Units 01:13 01:13 01:13 WBC 6.3 (3.98-10.04) x10^3/uL RBC 4.82 (3.93-5.22) x10^6/uL Hgb 15.1 (11.2-15.7) g/dL Hct 43.5 (34.1-44.9) % MCV 90.2 (79.4-94.8) fL MCH 31.3 (25.6-32.2) pg MCHC 34.7 (32.2-35.5) g/dL RDW 11.9 (11.7-14.4) % Plt Count 369 (182-369) x10^3/uL MPV 10.0 (9.4-12.3) fL Gran % 44.6 (34.0-71.1) % Immature Gran % (Auto) 0.3 (0.001-0.429) % Nucleat RBC Rel Count 0.0 (0.00-0.2) % Eos # (Auto) 0.06 (0.04-0.36) x10^3/uL Immature Gran # (Auto) 0.02 (0.001-0.031) x10^3u/L Absolute Lymphs (auto) 2.78 (1.18-3.74) x10^3/uL Absolute Monos (auto) 0.56 (0.24-0.86) x10^3/uL Absolute Nucleated RBC 0.00 (0.00-0.012) x10^3u/L Lymphocytes % 44.2 (19.3-51.7) % Monocytes % 8.9 (4.7-12.5) % Eosinophils % 1.0 (0.7-5.8) % Basophils % 1.0 (0.1-1.2) % Absolute Granulocytes 2.81 (1.56-6.13) x10^3/uL Basophils # 0.06 (0.01-0.08) x10^3/uL D-Dimer (0.0-0.50) mg/L Sodium 140 (135-145) mmol/L Potassium 3.6 (3.5-5.1) mmol/L Chloride 104 (98-107) mmol/L Carbon Dioxide 22 (22-30) mmol/L Anion Gap 18.5 H (5-15) MEQ/L BUN 10 (7-17) mg/dL Creatinine 0.60 (0.52-1.04) mg/dL Estimated GFR 123.0 ML/MIN Glucose 117 H (74-106) mg/dL Lactic Acid (0.4-2.0) Calcium 9.8 (8.4-10.2) mg/dL Total Bilirubin 0.60 (0.2-1.3) mg/dL AST 34 (14-36) U/L ALT 23 (0-35) U/L Alkaline Phosphatase 49 (38-126) U/L Troponin I (0.000-0.033) ng/mL NT-Pro-B Natriuret Pep 93.2 (<300) pg/mL Serum Total Protein 8.0 (6.3-8.2) g/dL Albumin 5.1 H (3.5-5.0) g/dL Amylase 67 (30-110) U/L Lipase 151 (23-300) U/L Urine Color Yellow (Yellow) Urine Appearance Clear (Clear) Urine pH 7.5 (4.6-8.0) Ur Specific [place] <=1.005 (1.005-1.030) Urine Protein Negative (Negative) Urine Glucose (UA) Negative (Negative) mg/dL Urine Ketones Negative (Negative) Urine Blood Negative (Negative) Urine Nitrite Negative (Negative) Urine Bilirubin Negative (Negative) Urine Urobilinogen 0.2 (0.2) mg/dL Ur Leukocyte Esterase Negative (Negative) U Hyaline Cast (Auto) NONE SEEN (0-2) /LPF Urine Microscopic RBC 0-2 (0-5) /HPF Urine Microscopic WBC 0-2 (0-5) /HPF Ur Epithelial Cells None Seen (None Seen) /HPF Urine Bacteria None Seen (None Seen) /HPF Urine Culture Reflexed NO (NO) - Progress Progress: improved, re-examined Air Movement: good Progress Note: 07/29/24 03:58 pts pain has now resolved to 0/10 hr in 90s, and she wishes DC to outpt f/u rather than further obs in hospital and is aware that there still could be a cardiac, vascular ( such as PE even with negative D dimer and trop) or other potentially serious cause for the pain and w/u needs to be completed - but she prefers as oupt with her DrMallika and has the capacity to make this choice which is reasonable with her heart score of 3 ( one for pain, 1 for ekg, 1 for fam Hx) and trop negative. 07/29/24 04:05 07/29/24 04:06 Blood Culture(s) Obtained: No Antibiotics given: No Counseled pt/family regarding: lab results, diagnosis, need for follow-up, rad results Medical Desision Making - Independent Historian Additional History obtained from: Family - Discussion of managment Reviewed:: Test results, Need for additional workup - Diagnostic Testing Diagnostic test were ordered, analyzed, and reviewed by me: Yes Radiological Interpretation: Interpreted by me - Risk of complications The pt has a mod risk of morbidity or mortality based on: Need for prescription drug management The pt has a high risk of morbidity or mortality based on: Decision regarding hospitilization or escalation of hosp level of care - Departure Departure Disposition: Home Clinical Impression: Chest pain of unknown etiology Condition: Good Critical Care Time: No Referrals: HÉCTOR MIRELES NP [Primary Care Provider, [facility]] - Follow up/PCP as directed Instructions: Chest Pain (DC) Additional Instructions: We have not yet determined a cause for your symptoms. although your risk factors are relatively low and the tests so far are negative, you should have further work up with your DrMallika to fully exclude any heart conditions. DERIC. Return meantime if symptoms return or any chest pain, shortness of breath, dizziness or other symptoms of concern.
[2024-07-29] MEDS ORDERED: Zofran 4 MG/2 ML VIAL ONE (01:18)
[2024-07-29] MEDS ORDERED: Nitrostat 0.4 MG (ED) SL ONE (01:18)
[2024-07-29] MEDS ORDERED: BABY ASPIRIN 81 MG CHEW ONE (01:18)
[2024-07-29 01:27] LABS: Absolute Neutrophil Ct (ANC) 2.81 x10^3/uL (1.56-6.13); Basophil (Absolute #) 0.06 x10^3/uL (0.01-0.08); Eosinophil (Absolute #) 0.06 x10^3/uL (0.04-0.36); Hematocrit 43.5 % (34.1-44.9); Hemoglobin 15.1 g/dL (11.2-15.7); IMMATURE GRAN # 0.02 x10^3u/L (0.001-0.031); IMMATURE GRAN % 0.3 % (0.001-0.429); Lymphocyte (Absolute #) 2.78 x10^3/uL (1.18-3.74); Lymphocytes % 44.2 % (19.3-51.7); Mean Cell Volume 90.2 fL (79.4-94.8); Mean Corpuscular Hemoglobin 31.3 pg (25.6-32.2); Mean Corpuscular Hgb Concent. 34.7 g/dL (32.2-35.5); Monocyte (Absolute #) 0.56 x10^3/uL (0.24-0.86); Monocytes % 8.9 % (4.7-12.5); Neutrophil % 44.6 % (34.0-71.1); Platelet Count 369 x10^3/uL (182-369); Red Blood Count 4.82 x10^6/uL (3.93-5.22); Red Cell Distribution Width 11.9 % (11.7-14.4); White Blood Count 6.3 x10^3/uL (3.98-10.04)
[2024-07-29 01:31] VITALS: TEMP 98.8
[2024-07-29] MEDS: Zofran 4 MG/2 ML VIAL IV ONE (01:33)
[2024-07-29] MEDS ORDERED: PROTONIX 40 MG IV IV ONE (01:33)
[2024-07-29] MEDS ORDERED: Pepcid 20 MG VIAL IV ONE (01:33)
[2024-07-29] MEDS: Pepcid 20 MG VIAL IV ONE (01:34)
[2024-07-29] MEDS: PROTONIX 40 MG IV IV ONE (01:34)
[2024-07-29] MEDS: Nitrostat 0.4 MG (ED) SL ONE (01:34)
[2024-07-29 01:35] LABS: Appearance Clear (Clear); Bacteria None Seen /HPF (None Seen); Bilirubin Negative (Negative); Blood Negative (Negative); Epithelial Cells None Seen /HPF (None Seen); Glucose, Urine Negative (Negative); Hyaline Casts NONE SEEN /LPF (0-2); Ketones Negative (Negative); Leukocyte Esterase Negative (Negative); Nitrite Negative (Negative); Ph 7.5 (4.6-8.0); Protein,Urine Dip Negative (Negative); RBC 0-2 /HPF (0-5); Specific Gravity <=1.005 (1.005-1.030); Urobilinogen 0.2 mg/dL (0.2); WBC 0-2 /HPF (0-5)
[2024-07-29 01:49] LABS: ALBUMIN 5.1 g/dL (3.5-5.0); ANION GAP 18.5 MEQ/L (5-15); BILIRUBIN,TOTAL 0.6 mg/dL (0.2-1.3); Calcium 9.8 mg/dL (8.4-10.2); Creatinine 1 0.6 mg/dL (0.52-1.04); NT PRO BNPII 93.2 pg/mL (<300); Potassium 3.6 mmol/L (3.5-5.1)
[2024-07-29] MEDS ORDERED: Ativan 1 MG ONE (02:27)
[2024-07-29] MEDS: Ativan 1 MG PO ONE (02:28)
[2024-07-29] MEDS: BABY ASPIRIN 81 MG CHEW PO ONE (02:46)
[2024-07-29 04:04] VITALS: O2SAT 95
[2024-07-29 04:10] VITALS: BP 99/74; PULSE 79; RESP 20
[2024-07-29] MEDS: Oxy-IR 5 MG PO ONE (04:10)
--- NOTE | 2024-07-29 07:14 | XRAY ---
Indication: Chest pain. Comparison: February 25, 2009 Portable chest again demonstrates normal heart and lungs. Bony thorax intact again with minimal double curvature thoracolumbar scoliosis. No new/acute findings.
== END 2024-07-29 04:21 | disposition home or self-care (01) ==
LOC: ED 00:56
DX: R07.9 Chest pain, unspecified (principal); Z79.899 Other long term (current) drug therapy
CPT/HCPCS: 36415; 71045; 80053; 81001; 82150; 83605; 83690; 83880; 84484; 85025; 85379; 93005; 96374; 96375; 99284; 99285; J2405; A9270-GY